=== PATIENT | male | born 1960 | race Two or more races ===

== ENCOUNTER → 2020-08-11 08:34 | Outpatient (BNVA) | payer OTHER, SELFPAY | PROVIDERS: Visit Provider Internal Medicine | DX: Z76.89 Persons encountering health services in other specified circumstances (principal) ==

== ENCOUNTER → 2020-09-08 07:22 | Outpatient (BNVA) | payer OTHER, SELFPAY | PROVIDERS: Visit Provider Internal Medicine | DX: Z76.89 Persons encountering health services in other specified circumstances (principal) ==

== ENCOUNTER 2020-09-30 12:12 | Outpatient (REF) | payer OTHER, SELFPAY ==
[2020-09-30 14:26] LABS: Cholesterol 180 mg/dL; HDL Cholesterol 51 mg/dL; LDL Cholesterol Calculated 107 mg/dl; Triglycerides 111 mg/dL
[2020-10-01 08:03] LABS: LDL Cholesterol Direct 121 mg/dL (<100)
== END 2020-09-30 12:13 | disposition home or self-care (01) ==
LOC: HO.HMGCLDS 12:12
PROVIDERS: PCP Nurse Practitioner Family; Visit Provider Internal Medicine
DX: E78.5 Hyperlipidemia, unspecified (principal)
CPT/HCPCS: 36415; 80061; 83721

== ENCOUNTER → 2020-10-29 07:52 | Outpatient (BNVA) | payer OTHER, SELFPAY | PROVIDERS: PCP Nurse Practitioner Family; Visit Provider Internal Medicine ==

== ENCOUNTER → 2020-12-26 09:58 | Outpatient (BNVA) | payer OTHER, SELFPAY | PROVIDERS: PCP Nurse Practitioner Family; Visit Provider Internal Medicine ==

== ENCOUNTER 2021-08-26 08:40 | Outpatient (REF) | payer OTHER, SELFPAY ==
[2021-08-26 11:42] LABS: Appearance Urine CLOUDY; Color Urine YELLOW; Glucose Urine UA NEG (NEG); Leukocyte Esterase Urine NEG (NEG); Nitrite Urine NEG (NEG); Specific Gravity - Urine 1.025 (1.005-1.025); UACC Culture Trigger NO; Urine Blood 1+ (NEG); Urine Ketones NEG (NEG); Urine Protein NEG (NEG-TRACE)
[2021-08-26 11:54] LABS: Alanine Aminotransferase 35 U/L (0-40); Albumin Level 4.5 g/dL (3.5-5.0); Alkaline Phosphatase 65 U/L (39-117); Anion Gap 16 (12-20); Aspartate Amino Transferase 22 U/L (5-37); Bilirubin Total 0.5 mg/dL (0.0-1.0); Blood Urea Nitrogen 21 mg/dL (9-16); Calcium 9.9 mg/dL (8.4-10.2); Carbon Dioxide 27 mmol/L (22-29); Chloride 103 mmol/L (96-108); Cholesterol 105 mg/dL; Estimated Glomerular Filt Rate 58; Glucose Fasting 104 mg/dL (60-99); HDL Cholesterol 49 mg/dL; LDL Cholesterol Calculated 33 mg/dl; Potassium 4.3 mmol/L (3.3-5.1); Sodium 142 mmol/L (135-145); Total Protein 7.7 g/dL (6.5-8.0); Triglycerides 118 mg/dL
[2021-08-26 12:12] LABS: WBC Urine 0-2 /HPF (0-4)
[2021-08-26 12:14] LABS: RBC Urine 0-2 /HPF (0)
[2021-08-26 12:15] LABS: Amorphous Sediment Urine 2+ /LPF; Mucus Urine 1+ /LPF
[2021-08-26 12:18] LABS: TSH reflex Free T4 2.03 uIU/mL (0.32-4.0)
[2021-08-26 12:35] LABS: Prostate Specific Antigen Scr 0.22 ng/mL (<0.05-4.0)
[2021-08-28 04:56] LABS: LDL Cholesterol Direct 35 mg/dL (<100)
== END 2021-08-26 08:41 | disposition home or self-care (01) ==
LOC: HO.HMGCLDS 08:40
PROVIDERS: Internal Medicine; PCP Nurse Practitioner Family; Visit Provider Nurse Practitioner Family
DX: Z12.5 Encounter for screening for malignant neoplasm of prostate (principal); I10 Essential (primary) hypertension; E78.5 Hyperlipidemia, unspecified
CPT/HCPCS: 36415; 80053; 80061; 81001; 83721; 84153; 84443

== ENCOUNTER 2022-02-15 10:49 | Outpatient (REF) | payer OTHER, SELFPAY ==
[2022-02-15 13:44] LABS: Urine Cytology See Pathology rpt
[2022-02-15 13:55] LABS: Appearance Urine CLOUDY; Color Urine STRAW; Glucose Urine UA NEG (NEG); Leukocyte Esterase Urine NEG (NEG); Nitrite Urine NEG (NEG); Specific Gravity - Urine 1.025 (1.005-1.025); Urine Blood TRACE (NEG); Urine Ketones NEG (NEG); Urine Protein NEG (NEG-TRACE)
[2022-02-15 14:02] LABS: Alanine Aminotransferase 39 U/L (0-40); Albumin Level 4.3 g/dL (3.5-5.0); Alkaline Phosphatase 63 U/L (39-117); Anion Gap 13 (12-20); Aspartate Amino Transferase 23 U/L (5-37); Bilirubin Total 0.6 mg/dL (0.0-1.0); Blood Urea Nitrogen 23 mg/dL (9-16); Calcium 9.5 mg/dL (8.4-10.2); Carbon Dioxide 25 mmol/L (22-29); Chloride 104 mmol/L (96-108); Cholesterol 142 mg/dL; Estimated Glomerular Filt Rate > 60; Glucose Fasting 113 mg/dL (60-99); HDL Cholesterol 43 mg/dL; LDL Cholesterol Calculated 84 mg/dl; Potassium 4.5 mmol/L (3.3-5.1); Sodium 137 mmol/L (135-145); Total Protein 7.5 g/dL (6.5-8.0); Triglycerides 79 mg/dL
[2022-02-15 14:22] LABS: Amorphous Sediment Urine 4+ /LPF; RBC Urine 0-2 /HPF (0); WBC Urine 0 /HPF (0-4)
== END 2022-02-15 10:50 | disposition home or self-care (01) ==
LOC: HO.HMGCLDS 10:49
PROVIDERS: Absent Provider Internal Medicine; PCP Nurse Practitioner Family; Visit Provider Nurse Practitioner Family
DX: R31.29 Other microscopic hematuria (principal); I10 Essential (primary) hypertension
CPT/HCPCS: 36415; 80053; 80061; 81001; 87086; 88112

== ENCOUNTER 2022-09-08 09:53 | Outpatient (REF) | payer OTHER, SELFPAY | END 2022-09-08 09:54 | disposition home or self-care (01) | LOC: HO.SH 09:53 | PROVIDERS: Visit Provider Nurse Practitioner Family | DX: Z01.118 Encounter for examination of ears and hearing with other abnormal findings (principal); H90.3 Sensorineural hearing loss, bilateral; H93.13 Tinnitus, bilateral | CPT/HCPCS: 92557; 92567 ==

== ENCOUNTER 2022-09-28 09:19 | Outpatient (REF) | payer OTHER, SELFPAY ==
[2022-09-28 11:12] LABS: Alanine Aminotransferase 30 U/L (0-40); Albumin Level 4.4 g/dL (3.5-5.0); Alkaline Phosphatase 72 U/L (39-117); Anion Gap 11 (12-20); Aspartate Amino Transferase 21 U/L (5-37); Blood Urea Nitrogen 16 mg/dL (9-16); Calcium 9.7 mg/dL (8.4-10.2); Carbon Dioxide 29 mmol/L (22-29); Chloride 104 mmol/L (96-108); Cholesterol 96 mg/dL; Estimated Glomerular Filt Rate > 60; Glucose Random 107 mg/dL (60-115); HDL Cholesterol 44 mg/dL; LDL Cholesterol Calculated 38 mg/dl; Potassium 4.5 mmol/L (3.3-5.1); Sodium 139 mmol/L (135-145); Total Protein 7.3 g/dL (6.5-8.0); Triglycerides 72 mg/dL
[2022-09-29 22:52] LABS: LDL Cholesterol Direct 36 mg/dL (<100)
== END 2022-09-28 09:20 | disposition home or self-care (01) ==
LOC: HO.LAB 09:19
PROVIDERS: PCP Nurse Practitioner Family; Visit Provider Internal Medicine
DX: E78.5 Hyperlipidemia, unspecified (principal)
CPT/HCPCS: 36415; 80053; 80061; 83721

== ENCOUNTER → 2022-09-30 13:55 | Outpatient (BNVA) | payer OTHER, SELFPAY | PROVIDERS: PCP Nurse Practitioner Family; Visit Provider Internal Medicine | DX: E78.5 Hyperlipidemia, unspecified (principal); Z79.899 Other long term (current) drug therapy | CPT/HCPCS: 99212 ==

== ENCOUNTER 2023-01-17 08:47 | Outpatient (REF) | payer OTHER, SELFPAY ==
[2023-01-17 11:17] LABS: MANUAL DIFF FLAG NO
[2023-01-17 11:31] LABS: Appearance Urine Clear; Color Urine Dark Yellow; Glucose Urine UA Negative (Negative); Leukocyte Esterase Urine Negative (Negative); Nitrite Urine Negative (Negative); Specific Gravity - Urine >= 1.030 (1.005-1.025); Urine Blood Negative (Negative); Urine Ketones Trace mg/dL (Negative); Urine Protein Trace mg/dL (Neg-Trace)
[2023-01-17 11:35] LABS: Bacteria Urine None Seen (None Seen); Hyaline Casts Urine 0-2 /LPF (0-2); RBC Urine 0-2 /HPF (0-2); Squamous Epithelial Cell Urine 0-2 /HPF (0-2); WBC Urine 0-5 /HPF (0-5)
[2023-01-17 11:43] LABS: Basophils Percent Auto 0.4 % (0-2); Eosinophils Absolute Auto 0.1 X10*3/uL (0.0-0.4); Eosinophils Percent Auto 0.8 % (0-4); Hematocrit 51.8 % (42.0-52.0); Imm Gran Abs Auto 0.02 X10*3/uL (0.00-0.03); Imm Gran Pct Auto 0.3 % (0.0-0.4); Lymphocytes Absolute Auto 1.6 X10*3/uL (1.2-4.9); Lymphocytes Percent Auto 21.2 % (20-40); Mean Corpuscular HGB Conc 32.8 g/dl (31.0-36.0); Mean Corpuscular Hemoglobin 31.4 pg (27.0-33.0); Mean Corpuscular Volume 95.7 fL (80.0-98.0); Mean Platelet Volume 9.6 fL (9.4-12.4); Monocytes Absolute Auto 0.6 X10*3/uL (0.1-1.2); Monocytes Percent Auto 8.7 % (2-11); Neutrophils Percent Auto 68.6 % (45-73); Platelet Count 185 X10*3/uL (160-400); Red Blood Count 5.41 X10*6/uL (4.60-5.80); Red Cell Distribution Width 13.5 % (11.0-16.0); White Blood Count 7.3 X10*3/uL (4.8-10.8)
[2023-01-17 12:09] LABS: Alanine Aminotransferase 36 U/L (0-40); Albumin Level 4.4 g/dL (3.5-5.0); Alkaline Phosphatase 49 U/L (39-117); Anion Gap 11 (12-20); Aspartate Amino Transferase 22 U/L (5-37); Bilirubin Total 0.8 mg/dL (0.0-1.0); Blood Urea Nitrogen 19 mg/dL (9-16); Calcium 9.7 mg/dL (8.4-10.2); Carbon Dioxide 30 mmol/L (22-29); Chloride 104 mmol/L (96-108); Cholesterol 112 mg/dL; Estimated Glomerular Filt Rate 57; Glucose Fasting 97 mg/dL (60-99); HDL Cholesterol 47 mg/dL; LDL Cholesterol Calculated 48 mg/dl; Potassium 4.1 mmol/L (3.3-5.1); Sodium 141 mmol/L (135-145); Total Protein 7.1 g/dL (6.5-8.0); Triglycerides 89 mg/dL
[2023-01-17 12:14] LABS: Prostate Specific Antigen Scr 0.29 ng/mL (<0.05-4.0); TSH reflex Free T4 2.15 uIU/mL (0.32-4.0)
== END 2023-01-17 08:48 | disposition home or self-care (01) ==
LOC: HO.HMGCLDS 08:47
PROVIDERS: PCP Nurse Practitioner Family; Visit Provider Nurse Practitioner Family
DX: Z00.00 Encounter for general adult medical examination without abnormal findings (principal); Z12.5 Encounter for screening for malignant neoplasm of prostate; R31.29 Other microscopic hematuria
CPT/HCPCS: 36415; 80053; 80061; 81001; 84153; 84443; 85025

== ENCOUNTER 2023-03-17 09:08 | Outpatient (REF) | payer OTHER, SELFPAY ==
[2023-03-17 12:02] LABS: Cholesterol 109 mg/dL; HDL Cholesterol 62 mg/dL; LDL Cholesterol Calculated 36 mg/dl; Triglycerides 58 mg/dL
[2023-03-19 06:09] LABS: LDL Cholesterol Direct 36 mg/dL (<100)
== END 2023-03-17 09:09 | disposition home or self-care (01) ==
LOC: HO.HMGCLDS 09:08
PROVIDERS: PCP Nurse Practitioner Family; Visit Provider Internal Medicine
DX: E78.5 Hyperlipidemia, unspecified (principal)
CPT/HCPCS: 36415; 80061; 83721

== ENCOUNTER → 2023-04-04 07:51 | Outpatient (BNVA) | payer OTHER, SELFPAY | PROVIDERS: PCP Nurse Practitioner Family; Visit Provider Internal Medicine ==

== ENCOUNTER 2023-05-17 10:43 | Outpatient (AMB) | payer OTHER, SELFPAY ==
[2023-05-17 11:26] VITALS: BP 102/68; PULSE 54; O2SAT 96; BMI 28.0
--- NOTE | 2023-05-17 11:26 | A.OFFPC_ITS ---
Vital Signs 05/17/23 11:26 Height 5 ft 10 in Weight 195 lb BMI 28.0 BP 102/68 Blood Pressure Location Rt brachial Position Sitting Pulse 54 Pulse Source Pulse Oximeter Pulse Oximetry (%) 96 Oxygen Delivery Method Room Air Intake Visit Reasons: Physical exam Allergies No Known Allergies [No Known Allergies*] Allergy (Verified 05/17/23 12:25) Medication List - Last Reconciled 05/17/23 by Dimitris Carter, FINANCIAL COMPLIANCE MANAGER- aspirin 1 tab PO DAILY atorvastatin 80 mg PO DAILY carvedilol 3.125 mg PO BID dapagliflozin propanediol (Farxiga) 10 mg PO DAILY docusate sodium 100 mg PO BID ergocalciferol (vitamin D2) 1,250 mcg PO QWEEK evolocumab (Repatha SureClick) 140 mg subcut Q2W 30 days ketotifen fumarate 0.025%(0.035%) (Eye Itch Relief) 1 drp ophthalmic (eye) BID PRN montelukast 10 mg PO DAILY omeprazole 20 mg PO DAILY sacubitril-valsartan 49-51 mg (Entresto) 1 tab PO BID torsemide 10 mg PO DAILY triamcinolone acetonide 2 sprays intranasal DAILY Tobacco use date assessed: 05/17/23 Dental Screening Dental Screen Date: 05/17/23 Did you have a dental visit in the last 12 months?: No Did you have a dental problem in the last 6 months where you did not have access to dental care?: No Was dental information given to patient?: No HPI Physical exam HPI Details Pt is here for a PE. Will order labs. PSA is up to date. Due for colon screen, will refer to GI. Pt c/o increased GERD. He would like his omeprazole increased, will increased from 20mg to 40mg. Pt follows up with urology and cardiology. Pt asked if i can take over prescribing his rapatha, was seeing basilio, who is now leaving the office setting. I will take over this script [facility] Medical History Aortic stenosis Atherosclerosis CAD (coronary artery disease) CKD (chronic kidney disease) GERD (gastroesophageal reflux disease) History of [place] (myocardial infarction) HLD (hyperlipidemia) HTN (hypertension) Ischemic cardiomyopathy Paroxysmal A-fib PUD (peptic ulcer disease) Surgical History History of cardiac catheterization Hx of cholecystectomy Hx of heart artery stent S/P CABG x 4 Family History (Reviewed 05/17/23 @ 11:43 by DAVID [facility]EN[facility] Father No problems noted. Mother Myocardial infarction CVD (cardiovascular disease) Social History (Reviewed 05/17/23 @ 11:43 by DAVID LeonardEN[facility]) Housing: Apartment Patient Tobacco Use Status: Former Tobacco user Quit Date: 1979 Cigarette Packs Per Day: 1 Years Smoked: 12 e-Cigarette/Vaping Use: Never Used Second Hand Smoke Exposure: No Current occupational status: unemployed Cognitive needs: No Hearing needs: No Vision needs: No Questionnaire Thrive Questionnaire Date Thrive assessed: 01/17/23 LUCRETIA-7 AMB Questionnaire LUCRETIA-7 Date LUCRETIA - 7 assessed: 01/17/23 Source: Developed by Drs. Antonio Marquez, Wilda Barrientos, Bo Grider and colleagues, with an educational poly from [employer]. Review of Systems Const Denies chills and Denies fever(s) Eyes Denies blurry vision ENT Denies vertigo, Denies dizziness and Denies sore throat Card Denies chest pain at rest, Denies chest pain with activity, Denies diaphoresis, Denies dyspnea and Denies dyspnea on exertion Resp Denies cough, Denies dyspnea, Denies dyspnea on exertion and Denies wheezing GI Denies abdominal pain, Denies melena, Denies hematochezia, Denies constipation, Denies diarrhea and Denies loose stools Denies hematuria Musc Denies numbness and Denies tingling Skin/Breast Denies lesions Neuro Denies vertigo, Denies dizziness, Denies numbness and Denies tingling Psych Denies anxiety, Denies depression, Denies homicidal ideation, Denies suicidal ideation and Denies other (substance abuse) Aller/Immun Denies wheezing Physical exam (Primary Care) Vital Signs: Last Vital Signs Pulse 54 05/17/23 11:26 BP 102/68 05/17/23 11:26 Pulse Ox 96 05/17/23 11:26 Oxygen Delivery Method Room Air 05/17/23 11:26 BMI result Body Mass Index 28.0 Tobacco/Smoking Status: Tobacco use Status Tobacco use date assessed 05/17/23 05/17/23 11:32 Patient Tobacco Use Status Former Tobacco user 05/17/23 11:27 e-Cigarette/Vaping Use Never Used 05/17/23 11:27 Thrive Assessment: Date of Thrive Assessment Date Thrive assessed 01/17/23 05/17/23 11:27 Const General: cooperative Nutritional Appearance: well nourished Orientation/consciousness: patient oriented x3 HENMT Head: Yes normal to inspection, Yes normocephalic and Yes atraumatic Ears: TM's normal bilaterally Eyes General: appearance normal, both eyes and all related structures Alignment and Position: alignment normal and position normal Neck Neck: Yes normal visual inspection and Yes no lymphadenopathy Thyroid: Thyroid normal Resp Effort & Inspection: normal respiratory effort Auscultation: clear to auscultation bilaterally Cardio Rate: regular rate Rhythm: regular rhythm Heart sounds: S1 normal heart sound present, S2 normal heart sound present and Murmur heart sound present (faint) systolic GI Palpation (GI): Soft to palpation and nontender Auscultation: normal bowel sounds Male General Exam: Yes normal external exam Penis: normal penis Scrotum: scrotum normal, testes descended bilaterally and no inguinal hernias Testes: no testicular mass Skin Other: left upper chest with significant fading ecchymosis, incision with dermabond, slightly TTP, no signs of infection Rashes: no rashes Neuro General: patient oriented x3, moves all extremities, no focal motor deficits and deep tendon reflexes 2+ bilaterally Romberg Test: Negative Psych Appearance: grossly normal Mental Status: mental status grossly normal Speech and movement: Normal speech and movement present Affect: normal affect Attitude: cooperative Thought process: Normal thought process present Thought content: Normal thought content present Insight: Good insight present (Psych) Judgement: Good judgement present (Psych) Assessment and Plan Assessment & Plan (1) Physical exam: Code(s): Z00.00 - Encounter for general adult medical examination without abnormal findings (2) Screening for colon cancer: Code(s): Z12.11 - Encounter for screening for malignant neoplasm of colon (3) Screening PSA (prostate specific antigen): Code(s): Z12.5 - Encounter for screening for malignant neoplasm of prostate Plan The patient agreed to the use of a lpn medical assistant for this encounter. Scribed for SO VelardeP-BC by Clotilde Lopes, lpn medical assistant, on 05/17/2023 at 11:35 EST. Orders: Orders Comprehensive [place]. Panel Fast Today Z00.00 - Encounter for general adult med ical examination without abnormal findings Lipid Panel Today Z00.00 - Encounter for general adult medical examination without abnormal findings TSH reflex Free T4 Today Z00.00 - Encounter for general adult medical examination without abnormal findings Complete Blood Count Auto Diff Today Z00.00 - Encounter for general adult medical examination without abnormal findings UA CC w/rflx Micro + Cult Today Z00.00 - Encounter for general adult medical examination without abnormal findings Referrals Gastroenterology Referral Z12.11 - Encounter for screening for malignant neoplasm of colon Medications: Changed From omeprazole 20 mg PO DAILY 90 caps 1RF To omeprazole 40 mg PO DAILY 90 caps 1RF 90 days Coding Level of Care Code Est Pt Prev Care 40-64y(92989) Diagnoses Physical exam Z00.00 Screening for colon cancer Z12.11 Screening PSA (prostate specific antigen) Z12.5
== END 2023-05-17 12:20 | disposition home or self-care (01) ==
PROVIDERS: Visit Provider Nurse Practitioner Family
DX: Z00.00 Encounter for general adult medical examination without abnormal findings (principal); Z12.11 Encounter for screening for malignant neoplasm of colon; Z12.5 Encounter for screening for malignant neoplasm of prostate
CPT/HCPCS: 99396

== ENCOUNTER 2023-05-17 11:49 | Outpatient (REF) | payer OTHER, SELFPAY ==
[2023-05-17 13:08] LABS: MANUAL DIFF FLAG NO
[2023-05-17 13:37] LABS: Basophils Percent Auto 0.3 % (0-2); Eosinophils Absolute Auto 0.1 X10*3/uL (0.0-0.4); Eosinophils Percent Auto 0.8 % (0-4); Hematocrit 49.5 % (42.0-52.0); Hemoglobin 16.7 g/dl (14.0-18.0); Imm Gran Abs Auto 0.03 X10*3/uL (0.00-0.03); Imm Gran Pct Auto 0.3 % (0.0-0.4); Lymphocytes Absolute Auto 1.3 X10*3/uL (1.2-4.9); Lymphocytes Percent Auto 15.2 % (20-40); Mean Corpuscular HGB Conc 33.7 g/dl (31.0-36.0); Mean Corpuscular Hemoglobin 32.1 pg (27.0-33.0); Mean Platelet Volume 9.4 fL (9.4-12.4); Monocytes Absolute Auto 0.6 X10*3/uL (0.1-1.2); Monocytes Percent Auto 7.2 % (2-11); Neutrophils Absolute Auto 6.6 x10*3/uL (2.0-8.3); Neutrophils Percent Auto 76.2 % (45-73); Platelet Count 168 X10*3/uL (160-400); Red Blood Count 5.21 X10*6/uL (4.60-5.80); Red Cell Distribution Width 13.7 % (11.0-16.0); White Blood Count 8.7 X10*3/uL (4.8-10.8)
[2023-05-17 14:22] LABS: Alanine Aminotransferase 49 U/L (0-40); Albumin Level 4.5 g/dL (3.5-5.0); Alkaline Phosphatase 82 U/L (39-117); Anion Gap 14 (12-20); Aspartate Amino Transferase 41 U/L (5-37); Bilirubin Total 0.9 mg/dL (0.0-1.0); Blood Urea Nitrogen 23 mg/dL (9-16); Calcium 10.5 mg/dL (8.4-10.2); Carbon Dioxide 29 mmol/L (22-29); Chloride 103 mmol/L (96-108); Cholesterol 99 mg/dL (<200); Estimated Glomerular Filt Rate > 60; Glucose Fasting 87 mg/dL (60-99); HDL Cholesterol 53 mg/dL (>40); LDL Cholesterol Calculated 33 mg/dL (<100); Potassium 4.1 mmol/L (3.3-5.1); Sodium 142 mmol/L (135-145); Total Protein 8.3 g/dL (6.5-8.0); Triglycerides 69 mg/dL (<150)
[2023-05-17 14:27] LABS: TSH reflex Free T4 1.33 uIU/mL (0.32-4.0)
[2023-05-17 16:45] LABS: Appearance Urine Clear; Color Urine Yellow; Glucose Urine UA Negative (Negative); Leukocyte Esterase Urine Negative (Negative); Nitrite Urine Negative (Negative); PH 6.5 (5.0-9.0); Urine Blood Negative (Negative); Urine Ketones Negative (Negative); Urine Protein Negative (Neg-Trace)
== END 2023-05-17 11:50 | disposition home or self-care (01) ==
LOC: HO.HMGCLDS 11:49
PROVIDERS: PCP Nurse Practitioner Family; Visit Provider Nurse Practitioner Family
DX: Z00.00 Encounter for general adult medical examination without abnormal findings (principal)
CPT/HCPCS: 36415; 80053; 80061; 81003; 84443; 85025

== ENCOUNTER 2023-06-14 08:26 | Outpatient (REF) | payer OTHER, SELFPAY ==
--- NOTE | ~2023-06-14 | US_ITS ---
EXAMINATION: US ABDOMEN COMPLETE CLINICAL INFORMATION: Abnormal levels of other serum enzymes. Elevated liver enzymes. COMPARISON: None available. TECHNIQUE: Real-time imaging of the abdominal viscera. Limited visualization due to bowel gas. FINDINGS: PANCREAS: Limited visualization of pancreatic tail and head. Imaged portion of pancreatic body is unremarkable. ABDOMINAL AORTA: Mild atherosclerosis. INFERIOR VENA CAVA: Visualized portions are normal. LIVER: Mild diffusely heterogeneous hepatic echotexture may represent hepatocellular disease. Limited visualization. GALLBLADDER: Surgically absent. COMMON BILE DUCT: Normal in caliber measuring 0.5 cm in diameter. RIGHT KIDNEY: No hydronephrosis. No renal calculi. Renal cortical thickness is normal. Limited visualization. The kidney measures 10.4 cm in maximum dimension. LEFT KIDNEY: No hydronephrosis. No renal calculi. Renal cortical thickness is normal. Limited visualization. The kidney measures 11.9 cm in maximum dimension. SPLEEN: The spleen measures 8.0 cm in maximum dimension. FREE FLUID: None. US/US abdomen complete IMPRESSION: Mild atherosclerosis. Mild diffusely heterogeneous hepatic echotexture may represent hepatocellular disease. Gallbladder surgically absent.
[2023-06-15 08:37] LABS: HBS Num1 1.67 mIU/mL (0-7.99); HBc Num1 0.14 S/CO (0.00-0.79); HBsAGNum1 0.29 S/CO (0.00-0.99); Hepatitis A Antibody IgM 0.15 Index (0-0.79); Hepatitis B Core Antibody Nonreactive (Nonreactive); Hepatitis B Surface Antigen Negative (Negative); ~HepC Num1 0.05 S/CO (0.00-0.79); ~Hepatitis A Antibody IgM Nonreactive (Nonreactive); ~Hepatitis B Surface Antibody NONREACTIVE (Nonreactive); ~Hepatitis C Antibody Nonreactive (Nonreactive)
== END 2023-06-14 08:27 | disposition home or self-care (01) ==
LOC: HO.HMGCX 08:26
PROVIDERS: PCP Nurse Practitioner Family; Visit Provider Nurse Practitioner Family
DX: R74.8 Abnormal levels of other serum enzymes (principal)
CPT/HCPCS: 36415; 76700; 86704; 86706; 86709; 86803; 87340

== ENCOUNTER 2023-07-13 08:08 | Outpatient (AMB) | payer OTHER, SELFPAY ==
--- NOTE | 2023-07-13 08:11 | A.OFFVIS_ITS ---
Intake Vital Signs 07/13/23 08:25 Height 5 ft 10 in Weight 187 lb BMI 26.8 BP 120/68 Blood Pressure Location Lt brachial Position Sitting Pulse 79 Intake Visit Reasons: Colonoscopy screening Allergies No Known Allergies [No Known Allergies*] Allergy (Verified 07/13/23 08:24) Medication List - Last Reconciled 07/13/23 by Tamara Klein PA-C aspirin 1 tab PO DAILY atorvastatin 80 mg PO DAILY carvedilol 3.125 mg PO BID dapagliflozin propanediol (Farxiga) 10 mg PO DAILY docusate sodium 100 mg PO BID ergocalciferol (vitamin D2) 1,250 mcg PO QWEEK evolocumab (Repatha SureClick) 140 mg subcut Q2W 30 days ketotifen fumarate 0.025%(0.035%) (Eye Itch Relief) 1 drp ophthalmic (eye) BID PRN montelukast 10 mg PO DAILY omeprazole 40 mg PO DAILY 90 days sacubitril-valsartan 49-51 mg (Entresto) 1 tab PO BID torsemide 10 mg PO DAILY triamcinolone acetonide 2 sprays intranasal DAILY HPI HPI Comments History of Present Illness Details A 62 y/o male CAD-referred for colonoscopy-last colonoscopy 3 years ago at -3 adenomas- Persistent acid reflux-unable to identify anything specific-no weight gain, ppi increased-omeprazole 40 mg-appetite is good EGD/ 2019- Reviewed previous EGD colonoscopy and pathology from 2019 Bowels are normal- with bowel regimen and HFD- BILLY- cpap Qhs CAD- CABG-follows at [facility]- Dr. Cox- defibrillator place 04/2023- no anticoags No nausea, vomiting, hematemesis, hematochezia fever chills [facility] Medical History (Updated 07/13/23 @ 09:11 by Tamara Klein PA-C) Aortic stenosis CKD (chronic kidney disease) Paroxysmal A-fib Ischemic cardiomyopathy GERD (gastroesophageal reflux disease) Atherosclerosis History of [place] (myocardial infarction) PUD (peptic ulcer disease) HTN (hypertension) HLD (hyperlipidemia) CAD (coronary artery disease) Surgical History S/P CABG x 4 History of cardiac catheterization Hx of heart artery stent Hx of cholecystectomy Family History Father No problems noted. Mother Myocardial infarction CVD (cardiovascular disease) Social History Housing: Apartment Patient Tobacco Use Status: Former Tobacco user Quit Date: 1979 Cigarette Packs Per Day: 1 Years Smoked: 12 e-Cigarette/Vaping Use: Never Used Second Hand Smoke Exposure: No Current occupational status: unemployed Cognitive needs: No Hearing needs: No Vision needs: No Review of Systems Const All systems reviewed & are unremarkable except as noted in HPI and below ENT Denies Normal hearing present Card Denies chest pain and Denies dyspnea Resp Denies dyspnea GI Denies abdominal pain, Denies hematochezia, Denies change in bowel habits, Reports heartburn, Denies nausea and Denies vomiting Neuro Denies Normal hearing present Physical Exam Vital Signs: Last Vital Signs Pulse 79 07/13/23 08:25 BP 120/68 07/13/23 08:25 BMI result Body Mass Index 26.8 Const General: cooperative, comfortable and no acute distress Orientation/consciousness: patient oriented x3 Limitations: other limitations ([place]) Eyes Sclerae: sclerae normal Cardio Rate: regular rate Rhythm: regular rhythm Heart sounds: Murmur heart sound present systolic GI Palpation (GI): Soft to palpation and nontender Auscultation: normal bowel sounds Skin General skin exam: no rashes or lesions noted Neuro General: patient oriented x3 Cranial nerves: No Normal hearing present Extrem General: Yes full ROM Psych Appearance: grossly normal Mental Status: mental status grossly normal Speech and movement: Normal speech and movement present Affect: normal affect Attitude: cooperative Thought process: Normal thought process present Thought content: Normal thought content present Insight: Good insight present (Psych) Judgement: Good judgement present (Psych) Results Reviewed Results Reviewed: Reviewed previous EGD colonoscopy [address] Dr. Vasquez at [facility] Pathology 1. Esophagus, biopsy Focal intestinal metaplasia consistent with Pete's mucosa negative for dysplasia Esophageal squamous and gastric cardia mucosa with no pathologic changes 2. Transverse colon, polypectomy x3 Tubular adenomas, fragmented Assessment & Plan Assessment & Plan (1) Encounter for colonoscopy due to history of adenomatous colonic polyps: Comment: 2019-11 adenomas [facility]-Dr. 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: Comment: No dysplasia Code(s): K22.70 - Pete's esophagus without dysplasia Plan: EGD Continue omeprazole (4) GERD (gastroesophageal reflux disease): Comment: Recent increase PPI Unable to identify culprits Code(s): K21.9 - Gastro-esophageal reflux disease without esophagitis Plan: Continue PPI Reviewed reflux precautions (5) Chronic constipation: Code(s): K59.09 - Other constipation Plan: Reviewed high-fiber diet Consistent bowel regimen Plan EGD/ colonoscopy- anesthesia consult- CVD- defib/BILLY MG prep miralax 4 days before also , given history of constipation Continue bowel regimen for constipation maintain high-fiber diet Review reflux precautions Avoid culprits Continue PPI Orders: Orders EGD/[place] [facility] - GI Use Only Today K22.70 - Pete's esophagus without dysplasia, Z12.11 - Encounter for screening for malignant neoplasm of colon, Z86.010 - Personal history of colonic polyps, Z95.810 - Presence of automatic (implantable) cardiac defibrillator Medications: New bisacodyl (Dulcolax (bisacodyl)) Day before procedure, prep day Take 4 tablets by mouth upon awakening followed by large glass of water 20 mg (4 x 5 mg) PO ONCE 1 day 4 tabs 0RF colonoscopy prep Z12.11 - Encounter for screening for malignant neoplasm of colon polyethylene glycol 3350 (Miralax) Take as directed by mouth the day before your procedure. 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
[2023-07-13 08:25] VITALS: BP 120/68; PULSE 79; BMI 26.8
== END 2023-07-13 10:04 | disposition home or self-care (01) ==
PROVIDERS: PCP Nurse Practitioner Family; Visit Provider Physician Assistant
DX: Z12.11 Encounter for screening for malignant neoplasm of colon (principal); Z86.010 Personal history of colon polyps; Z95.810 Presence of automatic (implantable) cardiac defibrillator; K22.70 Barrett's esophagus without dysplasia; K21.9 Gastro-esophageal reflux disease without esophagitis; K59.09 Other constipation; Z01.818 Encounter for other preprocedural examination
CPT/HCPCS: 99204

== ENCOUNTER → 2023-07-13 08:08 | Outpatient (BNVA) | payer OTHER, SELFPAY | PROVIDERS: PCP Nurse Practitioner Family; Visit Provider Physician Assistant ==

== ENCOUNTER 2023-09-08 08:24 | Outpatient (REF) | payer OTHER, SELFPAY | END 2023-09-08 08:25 | disposition home or self-care (01) | LOC: HO.SH 08:24 | PROVIDERS: Visit Provider Nurse Practitioner Family | DX: Z01.118 Encounter for examination of ears and hearing with other abnormal findings (principal); H90.3 Sensorineural hearing loss, bilateral; H93.13 Tinnitus, bilateral | CPT/HCPCS: 92557 ==

== ENCOUNTER 2023-12-06 08:36 | Day surgery (SDC) | payer OTHER, SELFPAY ==
--- NOTE | 2023-12-05 11:43 | P.CONAN_ITS ---
Documented by User: Brandy Son NP 12/05/23 12:06 HPI - Anesthesia Eval Consult details Narrative: 63yo M for Upper Endoscopy and Colonoscopy Follows [facility] for CAD s/p CABG x 4 2018, CMP, EF 30-35%, ICD implanted 04/2023. Stable, improved last office visit 05/2023. (Routine f/u visit 12/12/23). Rides bike regularly without symptoms. 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 (Acute) Cardiac defibrillator in place (Acute) Encounter for colonoscopy due to history of adenomatous colonic polyps (Acute) Elevated liver enzymes (Acute) Screening for colon cancer (Acute) Low left ventricular ejection fraction (Acute) Physical exam (Acute) Allergies (Acute) Hearing loss (Acute) Microscopic hematuria (Acute) Screening PSA (prostate specific antigen) (Acute) Ischemic cardiomyopathy (Acute) Cough (Acute) Nausea & vomiting (Acute) CPAP (continuous positive airway pressure) dependence (Acute) HTN (hypertension) (Acute) HLD (hyperlipidemia) (Acute) CAD (coronary artery disease) (Acute) Past Medical History Medical History Aortic stenosis CKD (chronic kidney disease) Paroxysmal A-fib Ischemic cardiomyopathy GERD (gastroesophageal reflux disease) Atherosclerosis History of [place] (myocardial infarction) PUD (peptic ulcer disease) HTN (hypertension) HLD (hyperlipidemia) CAD (coronary artery disease) Family History Family History Father No problems noted. Mother Myocardial infarction CVD (cardiovascular disease) Surgical History Surgical History Hx of colonoscopy Hx of esophagogastroduodenoscopy History of cardiac defibrillator placement S/P CABG x 4 History of cardiac catheterization Hx of heart artery stent Hx of cholecystectomy Social History Social History Housing: Apartment Patient Tobacco Use Status: Former Tobacco user Quit Date: 1979 Cigarette Packs Per Day: 1 Years Smoked: 12 e-Cigarette/Vaping Use: Never Used Second Hand Smoke Exposure: No Use of substances other than those prescribed or required for medical reasons: No Are you DNR?: No Advance Directives: No Advance Directives Information Provided: Yes Current occupational status: unemployed Cognitive needs: No Hearing needs: No Vision needs: No Meds Allergies Allergy/AdvReac Type Severity Reaction Status Date / Time No Known Allergies Allergy Verified 07/13/23 08:24 [No Known Allergies*] Home Medications Medication Instructions Recorded Confirmed Last Taken Type aspirin 81 mg chewable tablet 1 tab PO DAILY 08/11/20 12/06/23 Unknown History ergocalciferol (vitamin D2) 1,250 1,250 mcg PO QWEEK 08/11/20 12/06/23 Unknown History mcg (50,000 unit) capsule torsemide 10 mg tablet 10 mg PO DAILY 08/11/20 12/06/23 Unknown History triamcinolone acetonide 55 mcg 2 spray intranasal DAILY 08/11/20 12/06/23 Unknown History nasal spray aerosol carvedilol 3.125 mg tablet 3.125 mg PO BID 04/04/23 12/06/23 Unknown History dapagliflozin propanediol 10 mg 10 mg PO DAILY 04/04/23 12/06/23 Unknown History tablet (Farxiga) docusate sodium 100 mg capsule 100 mg PO BID 04/04/23 12/06/23 Unknown History ketotifen fumarate 0.025 % (0.035 1 drp ophthalmic (eye) BID PRN 04/04/23 12/06/23 Unknown History %) eye drops (Eye Itch Relief) allergies montelukast 10 mg tablet 10 mg PO DAILY 04/04/23 12/06/23 Unknown History sacubitril 49 mg-valsartan 51 mg 1 tab PO BID 04/04/23 12/06/23 Unknown History tablet (Entresto) atorvastatin 80 mg tablet 80 mg PO DAILY 12/06/23 12/06/23 Unknown History finasteride 5 mg tablet 5 mg PO DAILY 12/06/23 12/06/23 Unknown History Exam Narrative Narrative: ECHO prior to ICD per cardiac visit note: LV systolic function worsened Moderate MR mild to mod ICD interr 10/2023 0% AT/AF AP 8% HYPNOTHERAPIST 1% Documented by User: Tangela Espinoza MD 12/06/23 10:27 HPI - Anesthesia Eval Anesthesia Pre-Procedure Meds If Yes to any meds - educate patient: Pt education - increased risk of aspiration and Pt education - possibility of cancelled proc at provider's discretion PMFSH Past Medical History Medical History Aortic stenosis CKD (chronic kidney disease) Paroxysmal A-fib Ischemic cardiomyopathy GERD (gastroesophageal reflux disease) Atherosclerosis History of [place] (myocardial infarction) PUD (peptic ulcer disease) HTN (hypertension) HLD (hyperlipidemia) CAD (coronary artery disease) Family History Family History Father No problems noted. Mother Myocardial infarction CVD (cardiovascular disease) Family history of problems with anesthesia: No Surgical History Surgical History Hx of colonoscopy Hx of esophagogastroduodenoscopy History of cardiac defibrillator placement S/P CABG x 4 History of cardiac catheterization Hx of heart artery stent Hx of cholecystectomy History of Problems with Anesthesia: No Social History Social History Housing: Apartment Patient Tobacco Use Status: Former Tobacco user Quit Date: 1979 Cigarette Packs Per Day: 1 Years Smoked: 12 e-Cigarette/Vaping Use: Never Used Second Hand Smoke Exposure: No Use of substances other than those prescribed or required for medical reasons: No Are you DNR?: No Advance Directives: No Advance Directives Information Provided: Yes Current occupational status: unemployed Cognitive needs: No Hearing needs: No Vision needs: No Meds Allergies Allergy/AdvReac Type Severity Reaction Status Date / Time No Known Allergies Allergy Verified 07/13/23 08:24 [No Known Allergies*] Home Medications Medication Instructions Recorded Confirmed Last Taken Type aspirin 81 mg chewable tablet 1 tab PO DAILY 08/11/20 12/06/23 Unknown History ergocalciferol (vitamin D2) 1,250 1,250 mcg PO QWEEK 08/11/20 12/06/23 Unknown History mcg (50,000 unit) capsule torsemide 10 mg tablet 10 mg PO DAILY 08/11/20 12/06/23 Unknown History triamcinolone acetonide 55 mcg 2 spray intranasal DAILY 08/11/20 12/06/23 Unknown History nasal spray aerosol carvedilol 3.125 mg tablet 3.125 mg PO BID 04/04/23 12/06/23 Unknown History dapagliflozin propanediol 10 mg 10 mg PO DAILY 04/04/23 12/06/23 Unknown History tablet (Farxiga) docusate sodium 100 mg capsule 100 mg PO BID 04/04/23 12/06/23 Unknown History ketotifen fumarate 0.025 % (0.035 1 drp ophthalmic (eye) BID PRN 04/04/23 12/06/23 Unknown History %) eye drops (Eye Itch Relief) allergies montelukast 10 mg tablet 10 mg PO DAILY 04/04/23 12/06/23 Unknown History sacubitril 49 mg-valsartan 51 mg 1 tab PO BID 04/04/23 12/06/23 Unknown History tablet (Entresto) atorvastatin 80 mg tablet 80 mg PO DAILY 12/06/23 12/06/23 Unknown History finasteride 5 mg tablet 5 mg PO DAILY 12/06/23 12/06/23 Unknown History Exam Airway Mallampati Class: II TM Dist: <=3cm Neck ROM: Limited Heart: rrr Lungs: cta Assessment and Plan Assessment Anesthesia Assessment: Anesthesia Plan Discussed and Chart Reviewed Final Anesthetic Review Family History of Problems with Anesthesia: No History of Problems with Anesthesia: No NPO: Yes ASA Class: III Final Preanesthetic Review: No Changes in Pt Med Stat, Meds/Allgs Chart Reviewed, Consent Obtained/Reviewed and Anes Risks/Benef Reviewed Patient Risk: High Procedure Risk: Intermediate Anesthetic Plan Anesthetic Plan: MAC: Disposition: Standard PACU
[2023-12-06 09:51] VITALS: BMI 26.1
[2023-12-06 09:58] VITALS: BP 129/77; PULSE 88; RESP 16; TEMP 36.6; O2SAT 100
[2023-12-06] MEDS: Lactated Ringers 1,000 ML 50 ML IVCONT (10:31)
--- NOTE | 2023-12-06 10:45 | P.HPSUR_ITS ---
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,hx colonic p Relevant Family History (Specify if Yes): No Relevant Social History: None Present Medications: see Short Stay Collaborative assessment Medical History: Significant History ( Aortic stenosis CKD (chronic kidney di sease) Paroxysmal A-fib Ischemic cardiomyopathy GERD (gastroesophageal reflux disease) Atherosclerosis History of [place] (myocardial infarction) PUD (peptic ulcer disease) HTN (hypertension) HLD (hyperlipidemia) CAD (coronary artery disease)) History of Previous Operations: Relevant previous surgery/procedure and date(s) (Hx of colonoscopy Hx of esophagogastroduodenoscopy History of cardiac defibrillator placement S/P CABG x 4 History of cardiac catheterization Hx of heart artery stent Hx of cholecystectomy) Allergies: Allergies Allergy/AdvReac Type Severity Reaction Status Date / Time No Known Allergies Allergy Verified 07/13/23 08:24 [No Known Allergies*] Review of Systems Sugical H&P ROS: Negative: Constitution, Cardiovascular, Respiratory, Neurological, Psychiatric, Hem-Onc, Allergic/Immunologic, Gastrointestinal, Genitourinary, Musculoskeletal, Integumentary, Endocrine and Eyes/Ears/Nose/Throat Exam Surgical H&P Exam: Normal: HEENT, Normal: Heart, Normal: Lungs, Normal: Extremities, Normal: Abdomen, Normal: Skin and Normal: Neurological Plan Diagnosis/Plan: Unchanged I have reviewed the history and physical and performed a pertinent physical examination on my patient. No changes have occurred unless specified. Time Spent With Patient Time: Total time managing care of this patient today ____ minutes.
--- NOTE | 2023-12-06 10:47 | P.OP_ITS ---
Operative Note Operative Note Date of Service: 12/06/23 Narrative: Operative Information Procedure Description: EGD, Colonoscopy Indication: hx of barretts and colon polyps Anesthesia: MAC FLEXIBLE TRANSORAL UPPER GASTROINTESTINAL ENDOSCOPY AND COLONOSCOPY PROCEDURE NOTE UPPER ENDOSCOPY Consent: Indications for the procedure and potential complications of bleeding, perforation, reaction to medications and missed diagnosis were discussed with the patient and informed consent was obtained. Instrument: Olympus GIF H 190 J mid size upper endoscope Monitoring: Vital signs and clinical assessment, continuous EKG monitoring, Pulse oximetry, Carbon Dioxide monitoring and blood pressure monitoring were done throughout the procedure. Procedure: The patient was placed in the left lateral decubitis position and pre-procedure medications were administered and a bite block was placed. The endoscope was inserted into the mouth and advanced under direct vision to the third part of duodenum. A careful inspection was made as the upper endoscope was withdrawn including a retroflexed examination of the proximal stomach; Findings and interventions are described below. Findings: Larynx:normal Esophagus: GE junction at 37 cm, diaphragm hiatus at 41 cm, consistent with 4 cm hiatal hernia, schatzki ring noted as well as tongue of possible barretts and linear erosion with edema and bogginess of the GEJ with some scarring, bx taken from GEj, distal and proximal esophagus Stomach: erosive gastritis in distal stomach and antrum. Biopsies were obtained. Grade 2 flap valve on retroflexed examination of the cardia. Duodenum: Patchy erythema, possible peptic injury, bx taken Intervention: Biopsies as noted above, COLONOSCOPY Instrument: Olympus variable stiffness pediatric scope 190L Colonoscopy Monitoring: Vital signs and clinical assessment, continuous EKG monitoring, Pulse oximetry, Carbon Dioxide monitoring and blood pressure monitoring were done throughout the procedure. Colon withdrawal time was 11 minutes. Procedure: The patient was placed in the left lateral decubitis position and pre-procedure medications were administered. After a digital rectal examination of the ano-rectum, the video colonoscope was inserted into the rectum and advanced through the colon to the cecum/TI. The colonoscope was slowly withdrawn in a retrograde panoramic fashion and the colon mucosa was carefully examined including a retroflexed view of the rectum. Findings and interventions are described below. Procedure Difficulty:moderate Findings: Terminal Ileum-not intubated due to looping Cecum:normal Ascending Colon: normal Transverse Colon -normal Descending Colon:normal Sigmoid Colon: normal Rectum: Retroflexion with small to moderate sized internal hemorrhoids, grade I Anorectum - normal Colon preparation: Jackson Bowel Preparation Scale Right colon; 2 Transverse colon: 2 Left colon; 2 (0 = Unprepared colon segment with mucosa not seen due to solid stool that cannot be cleared. 1 = Portion of mucosa of the colon segment seen, but other areas of the colon segment not well seen due to staining, residual stool and/or opaque liquid. 2 = Minor amount of residual staining, small fragments of stool and/or opaque liquid, but mucosa of colon segment seen well. 3 = Entire mucosa of colon segment seen well with no residual staining, small fragments of stool or opaque liquid) Impression and Post Procedure Diagnosis: Endoscopy Findings: hiatal hernia esophagitis, erosive erosive gastritis schatzki ring duodenitis barretts appearing mucosa Colonoscopy Findings: internal hemorrhoids Plan: Await Pathology results Repeat Colonoscopy in 5 years due to prior hx of adenomatous polyps or earlier if clinically indicated High fiber diet leaflet avoid straining at stool, epsom salts and sitz bath, anusol supps or cream GERD precautions, check PPI compliance, if taking change formulation Above findings were reviewed with the patient and relevant handouts were provided if indicated.
[2023-12-06 11:38] VITALS: BP 109/68; PULSE 71; RESP 14; TEMP 36.3; O2SAT 98
[2023-12-06 11:53] VITALS: BP 129/82; PULSE 77; RESP 16; TEMP 36.3; O2SAT 100
== END 2023-12-06 12:20 | disposition home or self-care (01) ==
PROVIDERS: PCP Nurse Practitioner Family; Visit Provider Internal Medicine Gastroenterology
PROC: (CPT 43239; principal; 2023-12-06 11:00)
DX: K22.89 Other specified disease of esophagus (principal); K29.60 Other gastritis without bleeding; K29.80 Duodenitis without bleeding; K22.2 Esophageal obstruction; K44.9 Diaphragmatic hernia without obstruction or gangrene; Z87.19 Personal history of other diseases of the digestive system; K21.9 Gastro-esophageal reflux disease without esophagitis; Z12.11 Encounter for screening for malignant neoplasm of colon; K64.0 First degree hemorrhoids; Z86.010 Personal history of colon polyps; I12.9 Hypertensive chronic kidney disease with stage 1 through stage 4 chronic kidney disease, or unspecified chronic kidney disease; N18.9 Chronic kidney disease, unspecified; I48.0 Paroxysmal atrial fibrillation; E78.5 Hyperlipidemia, unspecified; Z90.49 Acquired absence of other specified parts of digestive tract; Z95.810 Presence of automatic (implantable) cardiac defibrillator; Z99.89 Dependence on other enabling machines and devices; Z95.1 Presence of aortocoronary bypass graft
CPT/HCPCS: 43239; 45378; 88305; 88313; 88342; J2371; J2704; J3010

== ENCOUNTER → 2023-12-06 08:36 | Outpatient (BNV) | payer OTHER, SELFPAY | PROVIDERS: PCP Nurse Practitioner Family; Visit Provider Internal Medicine Gastroenterology | DX: Z12.11 Encounter for screening for malignant neoplasm of colon (principal); Z86.010 Personal history of colon polyps; K64.0 First degree hemorrhoids; K22.2 Esophageal obstruction; K29.80 Duodenitis without bleeding; K29.70 Gastritis, unspecified, without bleeding; K22.4 Dyskinesia of esophagus | CPT/HCPCS: 43239; 45378 ==

== ENCOUNTER 2023-12-20 11:29 | Outpatient (AMB) | payer OTHER, SELFPAY ==
--- NOTE | 2023-12-20 11:31 | MHC.OFFVIS ---
Intake Vital Signs 12/20/23 11:33 Height 5 ft 10 in Weight 187 lb 6.287 oz BMI 26.9 BP 132/71 Blood Pressure Location Lt brachial Position Sitting Pulse 79 Intake Visit Reasons: s/p egd/colon Intake Note: Dimitris presents in the office as a follow up egd and colo CC: No concerns just here for results. Retail Representative Required: No Allergies No Known Allergies [No Known Allergies*] Allergy (Verified 12/20/23 11:31) Medication List - Last Reconciled 12/20/23 by Tamara Klein PA-C aspirin 1 tab PO DAILY atorvastatin 80 mg PO DAILY atorvastatin 80 mg PO DAILY carvedilol 3.125 mg PO BID dapagliflozin propanediol (Farxiga) 10 mg PO DAILY docusate sodium 100 mg PO BID ergocalciferol (vitamin D2) 1,250 mcg PO QWEEK evolocumab (Repatha SureClick) 140 mg subcut Q2W 30 days finasteride 5 mg PO DAILY ketotifen fumarate 0.025%(0.035%) (Eye Itch Relief) 1 drp ophthalmic (eye) BID PRN montelukast 10 mg PO DAILY omeprazole 40 mg PO DAILY 90 days sacubitril-valsartan 49-51 mg (Entresto) 1 tab PO BID torsemide 20 mg PO DAILY triamcinolone acetonide 2 sprays intranasal DAILY HPI HPI Comments History of Present Illness Details 63-year-old male personal history of colon polyps as well as Barretts esophagus follows up after EGD and colonoscopy. Reviewed procedure report, pathology and recommendation Omeprazole 40 mg daily-with breakthrough-he does worry about damage to his esophagus Constipation has been well managed following high-fiber diet as well as bowel regimen He has no nausea, vomiting hematemesis, hematochezia fever or chills PFSH Medical History (Updated 12/20/23 @ 11:47 by Tamara Klein PA-C) Aortic stenosis CKD (chronic kidney disease) Paroxysmal A-fib Ischemic cardiomyopathy GERD (gastroesophageal reflux disease) Atherosclerosis History of [place] (myocardial infarction) PUD (peptic ulcer disease) HTN (hypertension) HLD (hyperlipidemia) CAD (coronary artery disease) Surgical History Hx of colonoscopy Hx of esophagogastroduodenoscopy History of cardiac defibrillator placement S/P CABG x 4 History of cardiac catheterization Hx of heart artery stent Hx of cholecystectomy Family History Father No problems noted. Mother Myocardial infarction CVD (cardiovascular disease) Social History Housing: Apartment Patient Tobacco Use Status: Former Tobacco user Quit Date: 1979 Cigarette Packs Per Day: 1 Years Smoked: 12 e-Cigarette/Vaping Use: Never Used Second Hand Smoke Exposure: No Current occupational status: unemployed Cognitive needs: No Hearing needs: No Vision needs: No Review of Systems Const All systems reviewed & are unremarkable except as noted in HPI and below Card Denies chest pain and Denies dyspnea Resp Denies dyspnea GI Denies abdominal pain and Reports heartburn Physical Exam Vital Signs: Last Vital Signs Pulse 79 12/20/23 11:33 BP 132/71 12/20/23 11:33 BMI result Body Mass Index 26.9 Const General: cooperative, healthy appearing, comfortable and no acute distress Orientation/consciousness: patient oriented x3 Limitations: no limitations Resp Effort & Inspection: normal respiratory effort and able to speak in complete sentences Neuro General: patient oriented x3 Extrem General: Yes full ROM Psych Appearance: grossly normal and well kempt Mental Status: mental status grossly normal Speech and movement: Normal speech and movement present and Clear speech present Affect: normal affect Attitude: cooperative Thought process: Normal thought process present Thought content: Normal thought content present Insight: Good insight present (Psych) Judgement: Good judgement present (Psych) Results Reviewed Results Reviewed: Impression and Post Procedure Diagnosis: Endoscopy Findings: hiatal hernia esophagitis, erosive erosive gastritis schatzki ring duodenitis barretts appearing mucosa Colonoscopy Findings: internal hemorrhoids Plan: Await Pathology results Repeat Colonoscopy in 5 years due to prior hx of adenomatous polyps or earlier if clinically indicated High fiber diet leaflet avoid straining at stool, epsom salts and sitz bath, anusol supps or cream GERD precautions, check PPI compliance, if taking change formulation Age/Sex: 63/M Attending: Aminah Valero MD : 1960 Submitted by: Aminah Valero MD Copies to: Dimitris CarterP- MR #: [id number] Status: [facility] Collected: 12/06/23 Location: [facility] Received: 12/06/23 Diagnosis A. Duodenum, biopsy: Chronic inactive duodenitis. B. Stomach, biopsy: Oxyntic mucosa with mild chronic inactive inflammation; no Helicobacter organisms seen. C. GE junction, biopsy: - Pete esophagus with background moderate chronic active inflammation. - No dysplasia seen. - Squamous epithelium within normal limits. D. Esophagus, distal, biopsy: Squamous epithelium within normal limits; no inflammation seen. E. Esophagus, proximal, biopsy: - Cardiac-type mucosa with moderate chronic inactive inflammation; no intestinal metaplasia seen. - Squamous mucosa within normal limits. Comment: The findings in part E may represent an inlet patch. Parts D and E may also have been switched either prior to or after receipt in the laboratory. Clinical History Pre-Op Dx: Possible Pete's esophagus, hx of polyps Post-Op Dx: Erosive esophagitis, Schatzki's ring, erosive gastritis, hiatal hernia 4 cm, duodenitis, LAX LES, possible Pete's esophagus, internal hemorrhoids Microscopic Description A-E. Microscopic sections examined. Intestinal metaplasia is seen in C, gastric metaplasia in A and no metaplastic changes in B, supported by AB/PAS stains; no Helicobacter organisms are seen, supported by H. pylori immunostain (B). Material Received A. Duodenum B. Stomach C. GE junction D. Distal esophagus E. Proximal esophagus Patient: Dimitris Peña Age/Sex: 63/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 Plan: Repeat EGD 2-3 years (3) GERD (gastroesophageal reflux disease): Comment: Recent increase PPI Unable to identify culprits Code(s): K21.9 - Gastro-esophageal reflux disease without esophagitis Plan: Switch to pantoprazole 40 mg daily Will give 1 month supply sucralfate Reflux precautions Avoid culprits (4) Hiatal hernia: Code(s): K44.9 - Diaphragmatic hernia without obstruction or gangrene Plan: Reviewed plan of care remain upright after eating small portions (5) Erosive esophagitis: Code(s): K22.10 - Ulcer of esophagus without bleeding Plan: Compliant with PPI Carafate 1 month (6) Schatzki's ring: Code(s): K22.2 - Esophageal obstruction Plan: Noted, reviewed with patient Plan pantoprazole 40 mg QD 4 wks- sucralfate repeat EGD 2-3 years Colon -5years Medications: New sucralfate 1 g (10 mL) PO QIDACHS 4 weeks PRN 420 mL 0RF acid reflux pantoprazole 40 mg PO DAILY 90 days 90 tabs 3RF Patient Instructions: Very pleasant 63-year-old Gent personal history of colon polyps and Pete's esophagus pantoprazole 40 mg QD 4 wks- sucralfate Reviewed reflux precautions Avoid culprits Remain upright 2-3 hours after eating especially evening may repeat EGD 2-3 years Colon -5years for history of colon polyps Will follow back for progress Encouraged to call with any questions or concerns Coding Level of Care Code Est Pt Level 3 (63476) Diagnoses Chronic constipation K59.09 Pete's esophagus determined by endoscopy K22.70 GERD (gastroesophageal reflux disease) K21.9 Hiatal hernia K44.9 Erosive esophagitis K22.10 Schatzki's ring K22.2 Time Spent (min) 25
[2023-12-20 11:33] VITALS: BP 132/71; PULSE 79; BMI 26.9
== END 2023-12-20 11:55 | disposition home or self-care (01) ==
PROVIDERS: PCP Nurse Practitioner Family; Visit Provider Physician Assistant
DX: K59.09 Other constipation (principal); K22.70 Barrett's esophagus without dysplasia; K21.9 Gastro-esophageal reflux disease without esophagitis; K22.2 Esophageal obstruction
CPT/HCPCS: 99213

== ENCOUNTER → 2023-12-20 11:29 | Outpatient (BNVA) | payer OTHER, SELFPAY | PROVIDERS: PCP Nurse Practitioner Family; Visit Provider Physician Assistant | DX: K59.09 Other constipation (principal); K22.70 Barrett's esophagus without dysplasia; K21.9 Gastro-esophageal reflux disease without esophagitis; K44.9 Diaphragmatic hernia without obstruction or gangrene; K22.10 Ulcer of esophagus without bleeding; K22.2 Esophageal obstruction | CPT/HCPCS: 99212 ==

== ENCOUNTER 2024-02-16 07:56 | Outpatient (AMB) | payer OTHER, SELFPAY ==
--- NOTE | 2024-02-16 08:01 | A.OFFVIS_ITS ---
Vital Signs 02/16/24 08:02 Height 5 ft 10 in Weight 194 lb 7.163 oz BMI 27.9 BP 96/56 L Blood Pressure Location Lt brachial Position Sitting Pulse 80 Intake Visit Reasons: 8 week follow up Intake Note: Patient here to f/u Curtis Reports acid reflux flares after spicy food. Patient c/o: finished Sucralfate course. 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: No Allergies No Known Allergies [No Known Allergies*] Allergy (Verified 02/16/24 08:07) Medication List - Last Reconciled 02/16/24 by Tamara Klein PA-C aspirin 1 tab PO DAILY atorvastatin 80 mg PO DAILY atorvastatin 80 mg PO DAILY carvedilol 3.125 mg PO BID dapagliflozin propanediol (Farxiga) 10 mg PO DAILY docusate sodium 100 mg PO BID ergocalciferol (vitamin D2) 1,250 mcg PO QWEEK evolocumab (Repatha SureClick) 140 mg subcut Q2W 30 days finasteride 5 mg PO DAILY ketotifen fumarate 0.025%(0.035%) (Eye Itch Relief) 1 drp ophthalmic (eye) BID PRN montelukast 10 mg PO DAILY pantoprazole 40 mg PO DAILY 90 days sacubitril-valsartan 49-51 mg (Entresto) 1 tab PO BID torsemide 20 mg PO DAILY triamcinolone acetonide 2 sprays intranasal DAILY HPI Comments Details: A 63 y/o male seen in November after EGD/colon- he c/ breakthrough so the Carafate break through reflux Completed a 4 wk course-carafate- pantoprazole 40-sx improved- Changes your diet-beneficial- he has continue pantoprazole 40 mg - Appetite is good He has no bowel Reviewed procedure report as well as pathology recommendations once again No nausea, vomiting hematemesis, hematochezia fever or chills PFSH Medical History (Updated 12/20/23 @ 11:47 by Tamara Klein PA-C) Aortic stenosis CKD (chronic kidney disease) Paroxysmal A-fib Ischemic cardiomyopathy GERD (gastroesophageal reflux disease) Atherosclerosis History of [place] (myocardial infarction) PUD (peptic ulcer disease) HTN (hypertension) HLD (hyperlipidemia) CAD (coronary artery disease) Surgical History Hx of colonoscopy Hx of esophagogastroduodenoscopy History of cardiac defibrillator placement S/P CABG x 4 History of cardiac catheterization Hx of heart artery stent Hx of cholecystectomy Family History Father No problems noted. Mother Myocardial infarction CVD (cardiovascular disease) Social History Housing: Apartment Patient Tobacco Use Status: Former Tobacco user Quit Date: 1979 Cigarette Packs Per Day: 1 Years Smoked: 12 e-Cigarette/Vaping Use: Never Used Second Hand Smoke Exposure: No Current occupational status: unemployed Cognitive needs: No Hearing needs: No Vision needs: No Physical Exam Vital Signs: Last Vital Signs Pulse 80 02/16/24 08:02 BP 96/56 L 02/16/24 08:02 BMI result Body Mass Index 27.9 Const General: cooperative, healthy appearing, comfortable, no acute distress and well developed Orientation/consciousness: patient oriented x3 Limitations: no limitations Resp Effort & Inspection: normal respiratory effort and able to speak in complete sentences Neuro General: patient oriented x3 Extrem General: Yes full ROM Psych Appearance: grossly normal and well kempt Mental Status: mental status grossly normal Speech and movement: Normal speech and movement present Affect: normal affect Attitude: cooperative Thought process: Normal thought process present Thought content: Normal thought content present Insight: Good insight present (Psych) Judgement: Good judgement present (Psych) Assessment & Plan Assessment & Plan (1) Pete's esophagus determined by endoscopy: Comment: No dysplasia Code(s): K22.70 - 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 He is made dietary modifications is benefit which he will continue Encouraged to fall with any questions or concerns He will follow-up p.r.n. Coding Level of Care Code Est Pt Level 3 (96128) Diagnoses Pete's esophagus determined by endoscopy K22.70 Erosive esophagitis K22.10 Schatzki's ring K22.2 Time Spent (min) 25
[2024-02-16 08:02] VITALS: BP 96/56; PULSE 80; BMI 27.9
== END 2024-02-16 08:42 | disposition home or self-care (01) ==
PROVIDERS: PCP Nurse Practitioner Family; Visit Provider Physician Assistant
DX: K22.70 Barrett's esophagus without dysplasia (principal); K22.2 Esophageal obstruction
CPT/HCPCS: 99213

== ENCOUNTER → 2024-02-16 07:56 | Outpatient (BNVA) | payer OTHER, SELFPAY | PROVIDERS: PCP Nurse Practitioner Family; Visit Provider Physician Assistant | DX: K22.70 Barrett's esophagus without dysplasia (principal); K22.10 Ulcer of esophagus without bleeding; K22.2 Esophageal obstruction | CPT/HCPCS: 99212 ==

== ENCOUNTER 2024-05-24 07:34 | Outpatient (AMB) | payer OTHER, SELFPAY ==
--- NOTE | 2024-05-24 07:36 | MHC.PC.OV ---
Vital Signs 05/24/24 07:37 Height 5 ft 10 in Weight 186 lb BMI 26.7 BP 98/62 Blood Pressure Location Lt brachial Position Sitting Pulse 61 Pulse Source Pulse Oximeter Pulse Oximetry (%) 96 Oxygen Delivery Method Room Air Intake Visit Reasons: Annual PE- NEEDS PHQ9 Intake Note: Pt is here today for his PE Allergies No Known Allergies [No Known Allergies*] Allergy (Verified 05/24/24 08:13) Medication List - Last Reconciled 05/24/24 by DESTINY Leonard aspirin 1 tab PO DAILY atorvastatin 80 mg PO DAILY dapagliflozin propanediol (Farxiga) 10 mg PO DAILY evolocumab (Repatha SureClick) 140 mg subcut Q2W 30 days finasteride 5 mg PO DAILY ketotifen fumarate 0.025%(0.035%) (Eye Itch Relief) 1 drp ophthalmic (eye) BID PRN montelukast 10 mg PO DAILY pantoprazole 40 mg PO DAILY 90 days sacubitril-valsartan 49-51 mg (Entresto) 1 tab PO BID torsemide 20 mg PO DAILY triamcinolone acetonide 2 sprays intranasal DAILY Tobacco use date assessed: 05/24/24 Dental Screening Dental Screen Date: 05/24/24 Did you have a dental visit in the last 12 months?: No Did you have a dental problem in the last 6 months where you did not have access to dental care?: No Was dental information given to patient?: Patient declined HPI Annual PE- NEEDS PHQ9 HPI Details Pt is here for a PE. Will order labs. Colon screen is up to date. Pt follows up with cardiology, vascular, nephrology, GI, and urology. Pt will ask for vaccines through his pharmacy [facility] Medical History Aortic stenosis CKD (chronic kidney disease) Paroxysmal A-fib Ischemic cardiomyopathy GERD (gastroesophageal reflux disease) Atherosclerosis History of [place] (myocardial infarction) PUD (peptic ulcer disease) HTN (hypertension) HLD (hyperlipidemia) CAD (coronary artery disease) Surgical History Hx of colonoscopy Hx of esophagogastroduodenoscopy History of cardiac defibrillator placement S/P CABG x 4 History of cardiac catheterization Hx of heart artery stent Hx of cholecystectomy Family History Father No problems noted. Mother Myocardial infarction CVD (cardiovascular disease) Social History Housing: Apartment Patient Tobacco Use Status: Former Tobacco user Cigarette Packs Per Day: 1 Years Smoked: 12 e-Cigarette/Vaping Use: Never Used Second Hand Smoke Exposure: No Current occupational status: unemployed Cognitive needs: No Hearing needs: No Vision needs: No Questionnaire PHQ-9 Over the last 2 weeks, how often have you been bothered by any of the following problems? 1. Little interest or pleasure in doing things: not at all 2. Feeling down, depressed, or hopeless: not at all 3. Trouble falling or staying asleep, or sleeping too much: not at all 4. Feeling tired or having little energy: not at all 5. Poor appetite or overeating: not at all 6. Feeling bad about yourself - or that you are a failure or have let yourself or your family down: not at all 7. Trouble concentrating on things, such as reading the newspaper or watching television: not at all 8. Moving or speaking so slowly that other people could have noticed. Or the opposite - being so fidgety or restless that you have been moving around a lot more than usual: not at all 9. Thoughts that you would be better off or of hurting yourself in some way: not at all Total score: 0 Depression Screening Interpretation: Negative Depression Screening Done: Yes 26322 - PHQ-9 Billing: Yes Source: Developed by Drs. Antonio Marquez, Wilda Barrientos, Bo Grider and colleagues, with an educational poly from [employer]. Thrive Questionnaire Date Thrive assessed: 01/17/23 I am a: Patient What is your living situation today?: I have a steady place to live Within the past 12 months, did the food you bought not last and you didn't have the money to get more?: Never true Within the past 12 months, did you worry whether your food would run out before you got money to buy more?: Never true Do you have trouble paying for medicines?: No Do you have trouble getting transportation to medical appointments?: No Do you have trouble paying your heating and electricity bill?: No Do you have trouble taking care of your child, family member or friend?: No Do you have trouble with day-to-day activities such as bathing, preparing meals, shopping, managing finances, etc.?: No Are you currently unemployed and looking for a job?: No Are you interested in more education?: No Currently or been in a relationship where the following occur: No concerns reported THRIVE Score: 0 AUDIT C Alcohol Use Questionnaire (AUDIT-C) 1. How often do you have a drink containing alcohol?: Never Total Score: 0 LUCRETIA-7 AMB Questionnaire LUCRETIA-7 Date LUCRETIA - 7 assessed: 05/24/24 Feeling nervous, anxious, or on edge: 0 = Not at all Not being able to stop or control worryin = Not at all Worrying too much about different things: 0 = Not at all Trouble relaxin = Not at all Being so restless that it is hard to sit still: 0 = Not at all Becoming easily annoyed or irritable: 0 = Not at all Feeling afraid as if something awful might happen: 0 = Not at all Total LUCRETIA-7 score (0-4 normal; 5-9 mild; 10-14 moderate; 15-21 severe): 0 Source: Developed by Drs. Antonio Marquez, Wilda Barrientos, Bo Grider and colleagues, with an educational poly from [employer]. LUCRETIA-7 Assessment Billing LUCRETIA-7 Assessment Tool: LUCRETIA-7 Assessment 58997 Review of Systems Const Denies chills and Denies fever(s) Eyes Denies blurry vision ENT Denies vertigo, Denies dizziness and Denies sore throat Card Denies chest pain at rest, Denies chest pain with activity, Denies diaphoresis, Denies dyspnea and Denies dyspnea on exertion Resp Denies cough, Denies dyspnea, Denies dyspnea on exertion and Denies wheezing GI Denies abdominal pain, Denies melena, Denies hematochezia, Denies constipation, Denies diarrhea and Denies loose stools Denies hematuria Musc Denies numbness and Denies tingling Skin/Breast Denies lesions Neuro Denies vertigo, Denies dizziness, Denies numbness and Denies tingling Psych Denies anxiety, Denies depression, Denies homicidal ideation, Denies suicidal ideation and Denies other (substance abuse) Aller/Immun Denies wheezing Physical exam (Primary Care) Vital Signs: Last Vital Signs Pulse 61 05/24/24 07:37 BP 98/62 05/24/24 07:37 Pulse Ox 96 05/24/24 07:37 Oxygen Delivery Method Room Air 05/24/24 07:37 BMI result Body Mass Index 26.7 Tobacco/Smoking Status: Tobacco use Status Tobacco use date assessed 05/24/24 05/24/24 07:42 Patient Tobacco Use Status Former Tobacco user 05/24/24 07:42 e-Cigarette/Vaping Use Never Used 05/24/24 07:42 PHQ-9: PHQ-9 Score PHQ-9: Total score 0 05/24/24 07:53 Depression Screening Interpretation: Negative Thrive Assessment: Date of Thrive Assessment Date Thrive assessed 01/17/23 05/24/24 07:42 Currently or been in a relationship where the following occur: No concerns reported Const General: cooperative Nutritional Appearance: well nourished Orientation/consciousness: patient oriented x3 HENMT Head: Yes normal to inspection, Yes normocephalic and Yes atraumatic Ears: TM's normal bilaterally Eyes General: appearance normal, both eyes and all related structures Alignment and Position: alignment normal and position normal Neck Neck: Yes normal visual inspection, Yes no lymphadenopathy and Yes supple Resp Effort & Inspection: normal respiratory effort Auscultation: clear to auscultation bilaterally Cardio Rate: regular rate Rhythm: regular rhythm Heart sounds: S1 normal heart sound present, S2 normal heart sound present and Murmur heart sound present systolic GI Palpation (GI): Soft to palpation and nontender Auscultation: normal bowel sounds Male General Exam: Yes normal external exam Penis: normal penis Scrotum: scrotum normal, testes descended bilaterally and no inguinal hernias Testes: no testicular mass Skin Rashes: no rashes Neuro General: patient oriented x3, moves all extremities, no focal motor deficits and deep tendon reflexes 2+ bilaterally Romberg Test: Negative Psych Appearance: grossly normal Mental Status: mental status grossly normal Speech and movement: Normal speech and movement present Affect: normal affect Attitude: cooperative Thought process: Normal thought process present Thought content: Normal thought content present Insight: Good insight present (Psych) Judgement: Good judgement present (Psych) Assessment and Plan Assessment & Plan (1) Screening PSA (prostate specific antigen): Code(s): Z12.5 - Encounter for screening for malignant neoplasm of prostate Plan: PSA ordered (2) Physical exam: Code(s): Z00.00 - Encounter for general adult medical examination without abnormal findings Plan: Labs ordered Plan The patient agreed to the use of a medical appointment clerk for this encounter. Scribed for DESTINY Velarde by Clotilde Lopes medical appointment clerk, on 05/24/2024 at 07:50 EST. Orders: Orders Prostate Specific Antigen Scr Today Z12.5 - Encounter for screening for malignant neoplasm of prostate Complete Blood Count Auto Diff Today Z00.00 - Encounter for general adult medical examination without abnormal findings Comprehensive [place]. Panel Fast Today Z00.00 - Encounter for general adult medical examination without abnormal findings TSH reflex Free T4 Today Z00.00 - Encounter for general adult medical examination without abnormal findings UA CC w/rflx Micro + Cult Today Z00.00 - Encounter for general adult medical examination without abnormal findings Lipid Panel Today Z00.00 - Encounter for general adult medical examination without abnormal findings Coding Level of Care Code Est Pt Prev Care 40-64y(67988) Diagnoses Screening PSA (prostate specific antigen) Z12.5 Physical exam Z00.00 Additional Codes LUCRETIA-7 Assessment Billing - LUCRETIA-7 Assessment Tool: LUCRETIA-7 Assessment 77177 ([id number])
[2024-05-24 07:37] VITALS: BP 98/62; PULSE 61; O2SAT 96; BMI 26.7
== END 2024-05-24 08:03 | disposition home or self-care (01) ==
PROVIDERS: PCP Nurse Practitioner Family; Visit Provider Nurse Practitioner Family
DX: Z00.00 Encounter for general adult medical examination without abnormal findings (principal); Z12.5 Encounter for screening for malignant neoplasm of prostate
CPT/HCPCS: 99396

== ENCOUNTER 2024-09-21 08:40 | Outpatient (REF) | payer OTHER, SELFPAY ==
[2024-09-21 10:04] LABS: Appearance Urine Clear; Color Urine Yellow; Glucose Urine UA >=1000 mg/dL (Negative); Leukocyte Esterase Urine Negative (Negative); MANUAL DIFF FLAG NO; Nitrite Urine Negative (Negative); Specific Gravity - Urine 1.015 (1.005-1.025); UMIC TRIGGER UACC YES; Urine Blood Negative (Negative); Urine Ketones Negative (Negative); Urine Protein Negative (Neg-Trace)
[2024-09-21 10:07] LABS: Bacteria Urine None Seen (None Seen); Hyaline Casts Urine 0-2 /LPF (0-2); RBC Urine 0-2 /HPF (0-2); Squamous Epithelial Cell Urine 0-2 /HPF (0-2); WBC Urine 0-5 /HPF (0-5)
[2024-09-21 10:13] LABS: Basophils Percent Auto 0.5 % (0-2); Eosinophils Absolute Auto 0.1 X10*3/uL (0.0-0.4); Eosinophils Percent Auto 0.9 % (0-4); Hematocrit 50.2 % (42.0-52.0); Hemoglobin 16.6 g/dl (14.0-18.0); Imm Gran Abs Auto 0.02 X10*3/uL (0.00-0.03); Imm Gran Pct Auto 0.3 % (0.0-0.4); Lymphocytes Absolute Auto 1.2 X10*3/uL (1.2-4.9); Lymphocytes Percent Auto 18.1 % (20-40); Mean Corpuscular HGB Conc 33.1 g/dl (31.0-36.0); Mean Corpuscular Hemoglobin 31.4 pg (27.0-33.0); Mean Corpuscular Volume 95.1 fL (80.0-98.0); Mean Platelet Volume 9.3 fL (9.4-12.4); Monocytes Absolute Auto 0.6 X10*3/uL (0.1-1.2); Monocytes Percent Auto 8.9 % (2-11); Neutrophils Absolute Auto 4.6 x10*3/uL (2.0-8.3); Neutrophils Percent Auto 71.3 % (45-73); Platelet Count 161 X10*3/uL (160-400); Red Blood Count 5.28 X10*6/uL (4.60-5.80); Red Cell Distribution Width 13.7 % (11.0-16.0); White Blood Count 6.4 X10*3/uL (4.8-10.8)
[2024-09-21 10:59] LABS: Prostate Specific Antigen Scr 0.22 ng/mL (<0.05-4.0)
[2024-09-21 11:03] LABS: Alanine Aminotransferase 33 U/L (0-40); Albumin Level 4.2 g/dL (3.5-5.0); Alkaline Phosphatase 63 U/L (39-117); Anion Gap 12 (12-20); Aspartate Amino Transferase 35 U/L (5-37); Bilirubin Total 0.7 mg/dL (0.0-1.0); Blood Urea Nitrogen 21 mg/dL (9-16); Calcium 9.5 mg/dL (8.4-10.2); Carbon Dioxide 28 mmol/L (22-29); Chloride 105 mmol/L (96-108); Cholesterol 98 mg/dL (<200); Estimated Glomerular Filt Rate > 60; Glucose Fasting 104 mg/dL (60-99); HDL Cholesterol 50 mg/dL (>40); LDL Cholesterol Calculated 32 mg/dL (<100); Potassium 4.5 mmol/L (3.3-5.1); Sodium 140 mmol/L (135-145); TSH reflex Free T4 1.97 uIU/mL (0.32-4.0); Total Protein 7.4 g/dL (6.5-8.0); Triglycerides 83 mg/dL (<150)
== END 2024-09-21 08:41 | disposition home or self-care (01) ==
LOC: HO.HMGCLDS 08:40
PROVIDERS: PCP Nurse Practitioner Family; Visit Provider Nurse Practitioner Family
DX: Z00.00 Encounter for general adult medical examination without abnormal findings (principal); Z12.5 Encounter for screening for malignant neoplasm of prostate
CPT/HCPCS: 36415; 80053; 80061; 81001; 81003; 84153; 84443; 85025

== ENCOUNTER 2024-11-21 10:03 | Outpatient (AMB) | payer OTHER, SELFPAY ==
[2024-11-21 10:24] VITALS: BP 122/80; PULSE 78; RESP 17; TEMP 36.6; O2SAT 97; BMI 28.4
--- NOTE | 2024-11-21 10:24 | MHC.PC.OV ---
Vital Signs 11/21/24 10:24 Height 5 ft 10 in Weight 198 lb BMI 28.4 BP 122/80 Blood Pressure Location Lt brachial Position Sitting Respiration 17 Pulse 78 Pulse Source Pulse Oximeter Temp 97.9 F Temp Source Oral Pulse Oximetry (%) 97 Oxygen Delivery Method Room Air Intake Visit Reasons: 6 month follow up Intake Note: Pt is here today for 6 month follow up Allergies No Known Allergies [No Known Allergies*] Allergy (Verified 11/21/24 10:25) Medication List - Last Reconciled 11/21/24 by SO LeonardP- aspirin 1 tab PO DAILY atorvastatin 80 mg PO DAILY azelastine 1 spray intranasal BID dapagliflozin propanediol (Farxiga) 10 mg PO DAILY evolocumab (Repatha SureClick) 140 mg subcut Q2W 30 days finasteride 5 mg PO DAILY ketotifen fumarate 0.025%(0.035%) (Eye Itch Relief) 1 drp ophthalmic (eye) BID PRN metoprolol succinate ER 50 mg PO DAILY montelukast 10 mg PO DAILY pantoprazole 40 mg PO DAILY 90 days sacubitril-valsartan 49-51 mg (Entresto) 1 tab PO BID tamsulosin 0.4 mg PO DAILY torsemide 20 mg PO DAILY triamcinolone acetonide 2 sprays intranasal DAILY Tobacco use date assessed: 11/21/24 Fall risk assessment: No Falls in past year Last assessed Fall Risk: 11/21/24 Dental Screening Dental Screen Date: 11/21/24 Did you have a dental visit in the last 12 months?: Yes Did you have a dental problem in the last 6 months where you did not have access to dental care?: No Was dental information given to patient?: Patient has dentist HPI 6 month follow up HPI Details Chief Complaint The patient is perfectly stable regarding his hypertension. History of Present Illness The patient is a 64-year-old male presenting with a need for follow-up for hypertension management. The history of his essential hypertension indicates stable control with no reported issues such as chest pain, shortness of breath, or edema, suggesting effective treatment. The patient's care, involving both a director of finance and a topper press operator automatic, reflects multidisciplinary oversight likely aimed at addressing cardiovascular and renal health aspects. Laboratory tests conducted in the past have returned favorable results, and a future follow-up is planned in six months. No additional complaints related to his hypertensive condition were noted during this visit. Social History Health Maintenance Review of Systems - Cardiac: Denies chest pain - Respiratory: Denies shortness of breath - Vascular: Denies swelling or edema Physical Exam General: Cooperative, healthy appearing, comfortable, no acute distress and well developed Orientation: Patient oriented x3 Limitations: No limitations Head: Normal to inspection Ears: Hearing grossly normal bilaterally Nose: Normal external nose present Face and sinus: Normal facial exam Eyes: Appearance normal, both eyes and all related structures Neck: Normal visual inspection and Yes full ROM Respiratory: Normal respiratory effort and able to speak in complete sentences. Clear to auscultation bilaterally Cardiovascular: Regular rate and rhythm. Normal S1 and S2, systolic murmur GI: Normal to inspection. Soft to palpation and nontender Skin: No rashes or lesions noted Neuro: Patient oriented x3 Extremities: Normal to inspection Results - Labs: Last impressive laboratory results noted at the end of August of the previous year. Plan The management of the patient's essential hypertension remains stable under the supervision of a director of finance and topper press operator automatic. Given the compelling lab results and lack of symptoms, no new interventions were deemed necessary. Continued vigilance through regular medical consultations and lab checks will help sustain the current control. Planning for another evaluation in six months aligns with the goal of thorough and consistent follow-up in managing chronic hypertension. Discussion Notes During this visit, I reiterated the importance of regular follow-up for essential hypertension, which this patient is managing with the assistance of a director of finance and topper press operator automatic. We discussed the reassuring nature of recent lab work indicating effective management, and I emphasized the importance of continued multidisciplinary care. I explained that we would continue monitoring his condition through scheduled evaluations, with the next follow-up in six months. The patient understands the need to remain vigilant for any potential symptoms and to maintain this regular check-up schedule. Patient Instructions - Continue current hypertension treatment regimens. - Follow up with your director of finance and topper press operator automatic as scheduled. - Monitor for any new symptoms such as chest pain, shortness of breath, or swelling, and report them promptly. - Plan for a follow-up visit in approximately six months for reevaluation. [facility] Medical History (Updated 06/26/24 @ 07:[address] [facility]) Mitral valve regurgitation Lateral epicondylitis Peripheral artery disease (atherosclerosis) Carotid artery disease Ventricular tachycardia Aortic stenosis CKD (chronic kidney disease) Paroxysmal A-fib Ischemic cardiomyopathy GERD (gastroesophageal reflux disease) Atherosclerosis History of [place] (myocardial infarction) PUD (peptic ulcer disease) HTN (hypertension) HLD (hyperlipidemia) CAD (coronary artery disease) Surgical History Hx of colonoscopy Hx of esophagogastroduodenoscopy History of cardiac defibrillator placement S/P CABG x 4 History of cardiac catheterization Hx of heart artery stent Hx of cholecystectomy Family History Father No problems noted. Mother Myocardial infarction CVD (cardiovascular disease) Social History Housing: Apartment Patient Tobacco Use Status: Former Tobacco user Cigarette Packs Per Day: 1 Years Smoked: 12 e-Cigarette/Vaping Use: Never Used Second Hand Smoke Exposure: No Current occupational status: unemployed Cognitive needs: No Hearing needs: No Vision needs: No Questionnaire PHQ-9 Over the last 2 weeks, how often have you been bothered by any of the following problems? 1. Little interest or pleasure in doing things: not at all 2. Feeling down, depressed, or hopeless: not at all 3. Trouble falling or staying asleep, or sleeping too much: not at all 4. Feeling tired or having little energy: not at all 5. Poor appetite or overeating: not at all 6. Feeling bad about yourself - or that you are a failure or have let yourself or your family down: not at all 7. Trouble concentrating on things, such as reading the newspaper or watching television: not at all 8. Moving or speaking so slowly that other people could have noticed. Or the opposite - being so fidgety or restless that you have been moving around a lot more than usual: not at all 9. Thoughts that you would be better off or of hurting yourself in some way: not at all Total score: 0 Depression Screening Interpretation: Negative Depression Screening Done: Yes 20744 - PHQ-9 Billing: Yes Source: Developed by Drs. Antonio Marquez, Wilda Barrientos, Bo Grider and colleagues, with an educational poly from [email or web address]. Thrive Questionnaire Date Thrive assessed: 11/21/24 I am a: Patient What is your living situation today?: I have a steady place to live Within the past 12 months, did the food you bought not last and you didn't have the money to get more?: I choose not to answer this question Within the past 12 months, did you worry whether your food would run out before you got money to buy more?: I choose not to answer this question Do you have trouble paying for medicines?: I choose not to answer this question Do you have trouble getting transportation to medical appointments?: I choose not to answer this question Do you have trouble paying your heating and electricity bill?: I choose not to answer this question Do you have trouble taking care of your child, family member or friend?: I choose not to answer this question Do you have trouble with day-to-day activities such as bathing, preparing meals, shopping, managing finances, etc.?: I choose not to answer this question Are you currently unemployed and looking for a job?: I choose not to answer this question Are you interested in more education?: I choose not to answer this question Please select the resources that you would like help with: None Currently or been in a relationship where the following occur: I choose not to answer THRIVE Score: 0 AUDIT C Alcohol Use Questionnaire (AUDIT-C) 1. How often do you have a drink containing alcohol?: Never 3. How often do you have six or more drinks on one occasion?: Never Total Score: 0 Score Reviewed/Action Taken: Yes LUCRETIA-7 AMB Questionnaire LUCRETIA-7 Date LUCRETIA - 7 assessed: 11/21/24 Feeling nervous, anxious, or on edge: 0 = Not at all Not being able to stop or control worryin = Not at all Worrying too much about different things: 0 = Not at all Trouble relaxin = Not at all Being so restless that it is hard to sit still: 0 = Not at all Becoming easily annoyed or irritable: 0 = Not at all Feeling afraid as if something awful might happen: 0 = Not at all Total LUCRETIA-7 score (0-4 normal; 5-9 mild; 10-14 moderate; 15-21 severe): 0 Source: Developed by Drs. Antonio Marquez, Wilda Barrientos, Bo Grider and colleagues, with an educational poly from [email or web address]. LUCRETIA-7 Assessment Billing LUCRETIA-7 Assessment Tool: LUCRETIA-7 Assessment 23223 Physical exam (Primary Care) Vital Signs: Last Vital Signs Temp 97.9 F 11/21/24 10:24 Pulse 78 11/21/24 10:24 Resp 17 11/21/24 10:24 BP 122/80 11/21/24 10:24 Pulse Ox 97 11/21/24 10:24 Oxygen Delivery Method Room Air 11/21/24 10:24 BMI result Body Mass Index 28.4 Tobacco/Smoking Status: Tobacco use Status Tobacco use date assessed 11/21/24 11/21/24 10:26 Patient Tobacco Use Status Former Tobacco user 11/21/24 10:26 e-Cigarette/Vaping Use Never Used 11/21/24 10:26 PHQ-9: PHQ-9 Score PHQ-9: Total score 0 11/21/24 10:39 Depression Screening Interpretation: Negative Thrive Assessment: Date of Thrive Assessment Date Thrive assessed 11/21/24 11/21/24 10:26 Currently or been in a relationship where the following occur: I choose not to answer Coding Level of Care Code Est Pt Level 3 (88612) Diagnoses HTN (hypertension) I10 Screening PSA (prostate specific antigen) Z12.5 Additional Codes LUCRETIA-7 Assessment Billing - LUCRETIA-7 Assessment Tool: LUCRETIA-7 Assessment 87303 ([id number]) PHQ-9 - 16730 - PHQ-9 Billing: Yes ([id number]) Assessment & Plan Assessment & Plan (1) HTN (hypertension): Code(s): I10 - Essential (primary) hypertension Category: Medical (2) Screening PSA (prostate specific antigen): Code(s): Z12.5 - Encounter for screening for malignant neoplasm of prostate Category: Medical Plan . Orders: Orders Comprehensive [place]. Panel Fast Today I10 - Essential (primary) hypertension TSH reflex Free T4 Today I10 - Essential (primary) hypertension Lipid Panel Today I10 - Essential (primary) hypertension Prostate Specific Antigen Scr Today Z12.5 - Encounter for screening for malignant neoplasm of prostate Complete Blood Count Auto Diff Today I10 - Essential (primary) hypertension UA CC w/rflx Micro + Cult Today I10 - Essential (primary) hypertension
--- OUTSIDE RECORDS SUMMARY | 2024-11-21 12:05 | XMS_ITS | Clinical Summary ---
Author Organization [facility] Address [address] [facility] [place] [address] Phone Care Team Providers Care Bilingual Counter Sales Retail Name Role Phone Dimitris Carter NURSE PRACTICAL Primary Care Provider [phone] Allergies No known active allergies Medications BUDESONIDE ORAL 1 [place] by Nasal route 2 times daily. Active aspirin 81 mg EC tablet Take 81 mg by mouth daily. Active cholecalciferol (VITAMIN D-3) 50 mcg (2,000 unit) capsule Take by mouth once a week. Active evolocumab (Repatha Syringe) 140 mg/mL syringe Inject into the skin every 14 days. Active metoprolol succinate (TOPROL-XL) 50 mg 24 hr tablet Take 1 tablet (50 mg total) by mouth 1 (one) time each day. 4 Active oxymetazoline (No Drip) 0.05 % nasal spray 2 Sprays by Nasal route 2 times daily. Active sacubitriL-valsa rtan (Entresto) 49-51 mg per tablet Take 1 tablet by mouth 2 (two) times a day. 4 Active dapagliflozin propanediol (Farxiga) 10 mg tablet Take 1 tablet (10 mg total) by mouth 1 (one) time each day. 90 tablet 1 5 Active dapagliflozin propanediol (Farxiga) 10 mg tablet Take 1 tablet (10 mg total) by mouth 1 (one) time each day. 4 10/24/19 25 Discontinu ed(Reorder ) Active Problems Problem Noted Date Diagnosed Date Atherosclerosis of habematolel co ronary artery of habematolel heart without angina pectoris 06/20/2024 VT (ventricular tachycardia) 06/20/2024 Carotid artery disease 02/09/2023 Peripheral artery disease 02/09/2023 Hx of CABG 02/09/2023 Hypertension 02/09/2023 Nonrheumatic aortic valve stenosis 02/09/2023 Nonrheumatic mitral valve regurgitation 02/10/20 Aortic ejection murmur 12/14/2021 Dyspnea on exertion 12/14/2021 Ischemic cardiomyopathy 12/14/2021 Coronary atherosclerosis of habematolel coronary vess el 09/07/2005 Overview (10/19/2024): Followed by dr gunter He advises [facility] plavix unless bleeding Lateral epicondylitis 09/07/2005 Overview (10/19/2024): IMO update Mixed hyperlipidemia 09/07/2005 Encounters Date Type Department Care Team Description 10/24/2024 Telephone [facility] [address] [facility] [address] [place] [phone] Dimitris Gunter MD Med Refill 10/02/2024 9:30 PM EST Ancillary Procedure [facility] Cardiology [facility] [address] [place] [phone] from Last 3 Months Immunizations Name Administration Dates Next Due Influenza Quadravalent, MDCK , 0.5ml, preservative free (Flucelvax) 6mo and older 07/06/2023 Influenza Quadrivalent, 0.5m l, preservative free (Fluarix; FluLaval; Fluzone) ages 6mo and older (Afluria) 3yo and older 07/09/2022 Influenza Quadrivalent, with preservative (Fluzone; Afluria) 6mo and older 06/24/2020,08/27/2019 Influenza trivalent, 0.5mL, preservative free (Fluarix; FluLaval; Fluzone) ages 6mo and older (Afluria) 3 years and older 08/05/2024 Influenza, Unspecified 08/11/2019 Pneumococcal polysaccharide 23 valent (Pneumovax 23) 2yo and older 08/11/2019,02/28/2009 RSV, bivalent, protein subun it RSVpreF, 0.5mL, Preservative Free (Arexvy) 60yo and older 09/03/2023 Td Tetanus diptheria (Tdvax) 7yo and older 09/08 Tdap Tetanus diptheria acell ular pertussis (Boostrix; Adacel) 7yo and older 08/02/2023 Surgical History Surgery Date Site/Laterality Comments CHOLECYSTECTOMY PROCEDURE: HISTORICAL CHOLECYSTECTOMY; COMMENT: 2003 ESOPHAGOGASTRODUODENOSCOPY 01/02/08 PROCEDURE: [place] EGD TRANSORAL BIOPSY SINGLE/MULTIPLE; COMMENT: erosive esophagitis, r/o christina's. Erosive gastritis-bx:mild chronic inflammation, gastric ulcer Medical History Medical History Date Comments Mixed hyperlipidemia 09/07/2005 DX:Mixed hy perlipidemia Coronary atherosclerosis of unspecified type of vessel, habematolel or graft 09/07/2005 DX:Coronary atherosclerosis of unspecified type of vessel, habematolel or graft Lateral epicondylitis of elbow 09/07/2005 D X:Lateral epicondylitis of elbow Coronary atherosclerosis of unspecified type of vessel, habematolel or graft 09/07/2005 DX:Coronary atherosclerosis of unspecified type of vessel, habematolel or graft Family History Medical History Relation Name Comments Heart attack Mother Relation Name Status Comments Brother 1 Alive cabg Brother 2 Alive Brother 3 Alive Brother 4 Alive Father Alive cabg Mother (Age 51) Sister 1 Alive Sister 2 Alive Social History Tobacco Use Types Packs/Day Years Used Date Smoking Tobacco: Former Cigarettes Q uit: 09/26/1981 Smokeless Tobacco: Never Alcohol Use Standard Drinks/Week Comments No 0 (1 standard drink = 0.6 oz pur e alcohol) Sex and Gender Information Value Date Recorded Sex Assigned at Not on file Legal Sex Male 2:37 AM EST Gender Identity Not on file Sexual Orientation Not on file Obstetrics History Last Filed Vital Signs Vital Sign Reading Time Taken Comments Blood Pressure 98/58 06/13/2024 9:40 AM EDT Pulse 72 06/13/2024 9:40 AM EDT Temperature - - Respiratory Rate - - Oxygen Saturation - - Inhaled Oxygen Concentration - - Weight 84.8 kg (187 lb) 06/13/2024 9:40 AM EDT Height 177.8 cm (5' 10 ) 06/13/2024 9:40 AM EDT Body Mass Index 26.83 06/13/2024 9:40 AM EDT Plan of Treatment Upcoming Encounters Date Type Department Care Team (Late st Contact Info) Description 04/16/2025 1:30 PM EDT Ancillary Procedure [facility] Cardiology [facility] [address] [place] [address] 05/28/2025 7:00 AM EDT Ancillary Procedure [facility] Card[facility] [address] [place] [phone] Health Maintenance Due Date Last Done Comments Zoster Vaccines (1 of 2) 2010 Pneumococcal Vaccine: 50+ Years (2 of 2 - PCV) 08/11/2020 08/11/2019, 02/28/2009 Cholesterol Screening (Lipid Panel) 09/04/2022 07/31/2007 Colorectal Cancer Screening: Colonoscopy 09/04/2022 Depression Screening 09/04/2022 HIV Screening 09/04/2022 Medicare Annual Wellness Visit 09/04/2022 Social Influencers of Health Screening 09/04/2022 Hypertension/CHF/CAD Annual BMP Blood Test 03/14/2025 03/14/2024, 03/14/2024 DTaP,Tdap,and Td Vaccines (3 - Td or Tdap) 08/02/2033 08/02/2023, 09/08/2005 Hepatitis C Screening Completed 01/02/2004 Pneumococcal Vaccine: Pediatrics (0 to 5 Years) and At-Risk Patients (6 to 64 Years) Aged Out 08/11/2019, 02/28/2009 No longer eligibl e based on patient's age to complete this topic RSV Immunization Patients 60+ Years Old Completed 09/03/2023 COVID-19 Vaccine Completed 08/05/2024, 08/2023, 07/06/2022, Additional history exists Influenza Vaccine Completed 08/05/2024, , 07/09/2022, Additional history exists HIB Vaccines Aged Out No longer eligi ble based on patient's age to complete this topic HPV Vaccines Aged Out No longer eligi ble based on patient's age to complete this topic Hepatitis A Vaccines Aged Out No long er eligible based on patient's age to complete this topic Hepatitis B Vaccines Aged Out No long er eligible based on patient's age to complete this topic IPV Vaccines Aged Out No longer eligi ble based on patient's age to complete this topic MMR Vaccines Aged Out No longer eligi ble based on patient's age to complete this topic Meningococcal ACWY Vaccine Aged Out N o longer eligible based on patient's age to complete this topic Meningococcal B Vacine Aged Out No lo nger eligible based on patient's age to complete this topic RSV Immunization Patients Under 20 months Aged Out No longer eligible based on patient's age to complete this topic Varicella Vaccines Aged Out No longer eligible based on patient's age to complete this topic Medical Devices Implanted Type Area Wireless Development Manager Device Identifier Shelf Expiration Date Model / Serial / Lot Bsci-Crm [id number] Implanted:04/26 (Quantity not on file) Cardiac ICD [employer] MGMT [id number] / [id number] / Procedures Procedure Name Priority Date/Time Associated Diagnosis Comments CARDIAC DEVICE CHECK- REMOTE- MURJ Routine 10/02/2024 9:27 PM EST ANNUAL BMP BLOOD TEST Routine 03/14/2024 LIPID PANEL Routine 07/31/2007 HEPATITIS C SCREENING Routine 01/02/2004 from Last 3 Months or Most Recently Relevant to Health Maintenance Results * Cardiac device check - Remote- MURJ (10/02/2024 9:27 PM EST) Date Time Interrogation Session [id number] CV DEVICE CHECK Type Interrogation Session Remote Scheduled CV DEVICE CHECK Implantable Pulse Generator Wireless Development Manager BSX CV DEVICE CHECK Implantable Pulse Generator Type ICD CV DEVICE CHECK Implantable Pulse Generator Model D233 CV DEVICE CHECK Implantable Pulse Generator Serial Number [id number] CV DEVICE CHECK Implantable Pulse Generator Implant Date 20230512 CV DEVICE CHECK Battery Remaining Percentage 100.00 CV DEVICE CHECK Battery Remaining Longevity 156.0 CV DEVICE CHECK Battery Status Beginning of Service CV DEVICE CHECK Capacitor Charge Time 10.300 CV DEVICE CHECK Peter Statistic RA Percent Paced 22.00 CV DEVICE CHECK Peter Statistic RV Percent Paced 2.00 CV DEVICE CHECK Atrial Tachy Statistic AT/AF [place] Percent 0.00 CV DEVICE CHECK Lead Channel Sensing Intrinsic Amplitude 3.600 CV DEVICE CHECK Lead Channel Setting Sensing Sensitivity 0.25 CV DEVICE CHECK Lead Channel Impedance Value 512 CV DEVICE CHECK Lead Channel Pacing Threshold Amplitude 1.000 CV DEVICE CHECK Lead Channel Pacing Threshold Pulse Width 0.4 CV DEVICE CHECK Lead Channel RA Pacing Threshold Date 2024-09-11 CV DEVICE CHECK Lead Channel Setting Pacing Amplitude 2.000 CV DEVICE CHECK Lead Channel Setting Pacing Pulse Width 0.4 CV DEVICE CHECK Lead Channel Sensing Intrinsic Amplitude 19.400 CV DEVICE CHECK Lead Channel Setting Sensing Sensitivity 0.60 CV DEVICE CHECK Lead Channel Impedance Value 442 CV DEVICE CHECK Lead Channel Pacing Threshold Amplitude 0.900 CV DEVICE CHECK Lead Channel Pacing Threshold Pulse Width 0.4 CV DEVICE CHECK Lead Channel RV Pacing Threshold Date 2024-09-11 CV DEVICE CHECK Lead Channel Setting Pacing Amplitude 2.000 CV DEVICE CHECK Lead Channel Setting Pacing Pulse Width 0.4 CV DEVICE CHECK Peter Setting Mode (NBG Code) DDDR CV DEVICE CHECK Peter Setting Lower Rate Limit 60 CV DEVICE CHECK Peter Setting AT Mode Switch Rate 170 CV DEVICE CHECK Peter Setting Maximum Tracking Rate 130 CV DEVICE CHECK Peter Setting Maximum Sensor Rate 130 CV DEVICE CHECK Peter Setting PAV Delay 180 CV DEVICE CHECK Peter Setting SAHARA Delay 150 CV DEVICE CHECK Therapy Statistic Recent Shocks Delivered 0 CV DEVICE CHECK Therapy Statistic Recent Shocks Aborted 0 CV DEVICE CHECK Therapy Statistic Recent ATP Delivered 0 CV DEVICE CHECK Shock Measured Impedance 68 CV DEVICE CHECK Zone Setting Type Category VF CV DEVICE CHECK Rate 205 CV DEVICE CHECK Therapies Burst,41J,41J,41J x 6 CV DEVICE CHECK Zone Setting Status On CV DEVICE CHECK Zone ID 1 CV DEVICE CHECK Zone Setting Type Category VT CV DEVICE CHECK Rate 170 CV DEVICE CHECK Therapies 3 x Burst,41J,41J,41J x 4 CV DEVICE CHECK Zone Setting Status On CV DEVICE CHECK Zone ID 2 CV DEVICE CHECK Zone Setting Type Category VT CV DEVICE CHECK Rate 150 CV DEVICE CHECK Zone Setting Status Monitor CV DEVICE CHECK Zone ID 3 CV DEVICE CHECK Date of Service 2024-10-02 CV DEVICE CHECK Anatomical Region Laterality Modality Device Interroga tion 09/12/2024 1:01 AM EST Impressions 10/02/2024 11:54 AM EST Normal Remote: With Events * Normal Device Function * Events or Alerts: 1 *PAT 8 Beats * Battery: Battery is at 100%, 13.00 yrs * Sensing, impedance and thresholds reviewed * Programmed parameters reviewed * Presenting rhythm reviewed * Heart Rate Histograms reviewed HeartLogic Index: Stable * HeartLogic diagnostics assessed through the device * Current HeartLogic HF Index: __1_ * No overt HF present Narrative Procedure Note Bridget Sarmiento PA - 10/02/2024 IMPRESSION: Normal Remote: With Events * Normal Device Function * Events or Alerts: 1 *PAT 8 Beats * Battery: Battery is at 100%, 13.00 yrs * Sensing, impedance and thresholds reviewed * Programmed parameters reviewed * Presenting rhythm reviewed * Heart Rate Histograms reviewed HeartLogic Index: Stable * HeartLogic diagnostics assessed through the device * Current HeartLogic HF Index: __1_ * No overt HF present Bridget BRANDON CV IMPLANTABLE CARDIAC DEVICE FL OCEDURES Final Result * Annual BMP Blood Test (03/14/2024) Pathologist [facility] Annual BMP Blood Test abstracted Result [facility] Historical Provider HEALTH MAINTENANCE Final Result * Lipid panel (07/31/2007) [facility] LDL/HDL Ratio 3 0 - 4 Triglycerides 125 0 - 150 mg/dL Cholesterol 162 0 - 200 mg/dL HDL 53 >=40 mg/dL LDL Cholesterol 84 0 - 100 mg/dL Blood Venous blood specimen / Unknown Result [facility] Historical Provider LAB BLOOD ORDERABLES Joy l Result * Hepatitis C Screening (01/02/2004) Pathologist [facility] Hepatitis C Screening abstracted Historical Provider HEALTH MAINTENANCE Final Result from Last 3 Months or Most Recently Relevant to Health Maintenance Insurance [facility] MEDICARE ADVANTAGE Care Teams Bilingual Counter Sales Retail Relationship Specialty Start Date End Date Dimitris Carter NP [address] [place], [place] PCP - General 11/26/21
--- OUTSIDE RECORDS SUMMARY | 2024-11-21 12:05 | XMS_ITS | Encounter Summary ---
Author Organization [facility] Address [address] [place] [address] Care Team Providers Care Private Duty Aide Name Role Phone Dimitris Carter NP Primary Care Provider [phone] Reason for Visit * Reason Onset Date Comments Med Refill 10/24/2024 Encounter Details Date Type Department Care Team (Late st Contact Info) Description 10/24/2024 Telephone [facility] [address] [facility] [address] [place] [phone] Dimitris Núñez MD [address] [place] [address],[address] [address] Med Refill Social History Tobacco Use Types Packs/Day Years [...] on file Sexual Orientation Not on file documented as of this encounter Ordered Prescriptions Prescription Sig Dispense Quantity Refills Last Filled Start Date End Date dapagliflozin propanediol (Farxiga) 10 mg tablet Take 1 tablet (10 mg total) by mouth 1 (one) time each day. 90 tablet 1 10/24/2024 documented in this encounter Progress Notes * Aranza Alexandra [place] - 10/24/2024 8:22 AM EST Tashi 06/19--efaxed the farxiga 10mg * Noemi Wang - 10/24/2024 8:05 AM EST The patient called requesting a refill for Farxiga 10 mg, 1 tablet daily, 90 day supply, pharmacy confirmed. documented in this encounter Plan of Treatment Upcoming Encounters Date Type Department Care Team (Late st Contact Info) Description 04/16/2025 1:30 PM EDT Ancillary Procedure [facility] Cardiology [facility] [address] [facility] [address] [place] [address] 05/28/2025 7:00 AM EDT Ancillary Procedure [facility] Cardiology [facility] [address] [facility] [address] [place] [address] documented as of this encounter Visit Diagnoses Not on filedocumented in this encounter Discontinued Medications Medication Sig Discontinue Reason Start Date End Da te dapagliflozin propanediol (Farxiga) 10 mg tablet Take 1 tablet (10 mg total) by mouth 1 (one) time each day. Reorder 12/13/2023 10/24/2024 documented as of this encounter Care Teams Private Duty Aide Relationship Specialty Start Date End Date Dimitris Carter NP [address] [place], [place] PCP - General 11/26/21 documented as of this encounter
--- OUTSIDE RECORDS SUMMARY | 2024-11-21 12:05 | XMS_ITS | Clinical Summary ---
Author Organization [facility] Address [address] [address] Phone Care Team Providers Care Debrander Name Role Phone BradcynthiaDimitris FAMILY CONSUMER SCIENTIST Primary Care Provider [phone] Allergies Active Allergy Reactions Criticality Noted Date Comments Dust Mite Extract 12/28/2021 Other reaction(s): congestion Medications aspirin (ST BROCK) 81 MG EC tablet Take 1 tablet by mouth 1 (one) time each day Active atorvastatin (LIPITOR) 80 MG tablet Take 1 tablet by mouth 1 (one) time each day Active clopidogrel (PLAVIX) 75 MG tablet Take 1 tablet by mouth 1 (one) time each day Active triamcinolone (NASACORT) 55 MCG/ACT nasal inhaler Administer 2 sprays into each nostril 1 (one) time each day 1 Active Repatha SureClick 140 MG/ML solution auto-injector 2 Active docusate sodium (COLACE) 100 MG capsule TAKE 1 CAPSULE BY MOUTH TWICE A DAY NEEDED FOR CONSTIPATION 2 Active carvedilol (COREG) 3.125 MG tablet Take 3.125 mg by mouth in the morning and 3.125 mg in the evening. Take with meals. 2 Active tamsulosin (FLOMAX) 0.4 MG 24 hr capsule Take 0.4 mg by mouth every night 2 Active budesonide (RHINOCORT AQ) 32 MCG/ACT nasal spray USE 2 SPRAYS IN EACH NOSTRIL DAILY 2 Active omeprazole (PriLOSEC) [address] capsule 3 Active Entresto 49-51 MG per tablet Take 1 tablet by mouth in the morning and 1 tablet in the evening. 3 Active montelukast (SINGULAIR) 10 MG tablet 3 Active ketotifen (ZADITOR) 0.025 % ophthalmic solution INSTILL 1 DROP INTO ECH EYE TWICE DAILY NEEDED 3 Active Farxiga 10 MG tablet 3 Active DULCOLAX 5 MG EC tablet TAKE 4 TABLETS BY MOUTH ONCE UPON AWAKENING WITH A LARGE GLASS OF WATER FOR COLONOSCOPY PREP FOR 1 DAY THE DAY BEFORE PROCEDURE. 3 Active Azelastine HCl 137 MCG/SPRAY solution INSTILL 1 SPRAY INTO EACH NOSTRIL TWICE DAILY 3 Active torsemide (DEMADEX) 20 MG tablet Take 1 tablet (20 mg total) by mouth 1 (one) time each day 90 tablet 3 4 Active ergocalciferol 1.25 MG (16621 UT) capsule TAKE 1 CAPSULE BY MOUTH ONE TIME PER WEEK 13 capsule 3 4 Active Active Problems Problem Noted Date Diagnosed Date Obese class I 07/26/2022 Acute nontraumatic kidney injury 12/28/2021 Acute systolic heart failure 12/28/2021 Carotid artery stenosis 12/28/2021 Chronic kidney disease stage 2 12/28/2021 Hypertensive disorder 12/28/2021 Mitral insufficiency and aortic stenosis 022 Old myocardial infarction 12/28/2021 Peptic ulcer 12/28/2021 Right bundle-branch block 12/28/2021 Hiatal hernia 02/26/2009 Esophagitis, not otherwise specified 01/01/2009 Coronary arteriosclerosis 09/07/2005 Overview (07/25/2023): Followed by dr gunter He advises detention plavix unless bleeding Hypercholesterolemia 09/07/2005 Lateral epicondylitis 09/07/2005 Overview (12/28/2021): IMO update Immunizations Name Administration Dates Next Due Influenza, Unspecified 08/11/2019 Pneumococcal Polysaccharide 08/11/2019, 9 Td 09/08/2005 Family History Medical History Relation Comments Cancer Father ear Hypertension Sibling 1 younger brother Heart disease Sibling 2 older brother-do uble bypass\ younger brother two stents Relation Status Comments Father Mother Sibling 1 Sibling 2 Social History Tobacco Use Types Packs/Day Years Used Date Smoking Tobacco: Never Smokeless Tobacco: Never Tobacco Cessation:Counseling Given: No Alcohol Use Standard Drinks/Week Comments No 0 (1 standard drink = 0.6 oz pur e alcohol) Sex and Gender Information Value Date Recorded Sex Assigned at Not on file Legal Sex Male 4:56 PM EST Gender Identity Not on file Sexual Orientation Not on file Last Filed Vital Signs Vital Sign Reading Time Taken Comments Blood Pressure 95/52 07/23/2024 1:46 PM EDT Pulse 66 07/23/2024 1:46 PM EDT Temperature - - Respiratory Rate - - Oxygen Saturation 93% 12/28/2021 5:06 PM EDT Inhaled Oxygen Concentration - - Weight 85.3 kg (188 lb) 07/23/2024 1:46 PM EDT Height 177.8 cm (5' 10 ) 11/19/2019 12:00 PM EST Body Mass Index 26.98 11/19/2019 12:00 PM EST Plan of Treatment Upcoming Encounters Date Type Department Care Team (Late st Contact Info) Description 07/22/2025 1:30 PM EDT Office Visit [facility] [address] [address] Cristofer Swain MD [facility] [phone] Health Maintenance Due Date Last Done Comments Colorectal Cancer Screening: Annual FOBT 2009 Colorectal Cancer Screening: Colonoscopy 2009 Colorectal Cancer Screening: Sigmoidoscopy 2009 Pneumococcal Vaccine: Pediatrics (0 to 5 Years) and At-Risk Patients (6 to 64 Years) (3 of 3 - PCV) 08/11/2020 08/11/2019, 02/28/2009 Influenza Vaccine (#1) 2024 08/11/2019 Hepatitis B Vaccine Aged Out No longe r eligible based on patient's age to complete this topic Insurance [facility] MEDICAID [facility] MEDICAID Care Teams Debrander Relationship Specialty Start Date End Date Dimitris Carter NP [address] [place] [address] PCP - General Nurse Practitioner 07/25/23
== END 2024-11-21 11:10 | disposition home or self-care (01) ==
PROVIDERS: PCP Nurse Practitioner Family; Visit Provider Nurse Practitioner Family
DX: I10 Essential (primary) hypertension (principal); Z12.5 Encounter for screening for malignant neoplasm of prostate

== ENCOUNTER → 2024-11-21 10:03 | Outpatient (BNVA) | payer OTHER, SELFPAY | PROVIDERS: PCP Nurse Practitioner Family; Visit Provider Nurse Practitioner Family | DX: I10 Essential (primary) hypertension (principal) | CPT/HCPCS: 96127; 99212 ==

== ENCOUNTER 2025-04-25 10:06 | Outpatient (REF) | payer OTHER, SELFPAY ==
--- OUTSIDE RECORDS SUMMARY | 2025-04-25 10:49 | XMS_ITS | Clinical Summary ---
Author Organization [facility] Address [address] [address] Phone Care Team Providers Care Cut Out And Marking Machine Operator Name Role Phone BradcynthiaDimitris ASSOCIATE PROFESSOR OF ANTHROPOLOGY Primary Care Provider [phone] Allergies Active Allergy Reactions Criticality Noted Date [...] INTO EACH NOSTRIL TWICE DAILY 3 Active ergocalciferol 1.25 MG (12614 UT) capsule TAKE 1 CAPSULE BY MOUTH ONE TIME PER WEEK 13 capsule 3 4 Active torsemide (DEMADEX) 20 MG tablet TAKE ONE TABLET BY MOUTH EVERY DAY 90 tablet 3 5 Active Active Problems Problem Noted Date Diagnosed [...] (07/25/2023): Followed by dr gunter He advises intermediate plavix unless bleeding Hypercholesterolemia 09/07/2005 Lateral epicondylitis 09/07/2005 Overview (12/28/2021): IMO update Encounters Date Type Department Care Team Description 01/30/2025 Refill [facility] [address] [place] [address] Cristofer Swain MD from Last 3 Months Immunizations Immunization Administration Dates Next Due Influenza, Unspecified 08/11/2019 [...] Office Visit [facility] [address] [address] Cristofer Swain MD [address] [address] Health Maintenance Due Date Last Done Comments Colorectal Cancer Screening: Annual FOBT 2009 Colorectal Cancer Screening: Colonoscopy 2009 Colorectal Cancer Screening: Sigmoidoscopy 2009 Pneumococcal Vaccine: 50+ Years (3 of 3 - PCV) 08/11/2020 08/11/2019, 02/28/2009 Influenza Vaccine (#1) 2025 4, 07/06/2023, 07/09/2022, Additional history exists Pneumococcal Vaccine: Peds (0 to 5 Years) and At-Risk Patients (6 to 49 Years) Discontinued 08/11/2019, 02/28/2009 Hepatitis B Vaccine Aged Out No longe r eligible based on patient's age to complete this topic Insurance [facility] Medicaid [facility] Medicaid Care Teams Cut Out And Marking Machine Operator Relationship Specialty Start Date End Date Dimitris Carter NP [address] [place] [address] PCP - General Nurse Practitioner 07/25/23
--- OUTSIDE RECORDS SUMMARY | 2025-04-25 10:49 | XMS_ITS | Clinical Summary ---
Author Organization [facility] Address [address] [place] [address] Phone Care Team Providers Care Ballet Master/Mistress Name Role Phone Jagruti Carter NP Primary Care Provider Allergies No known active allergies Medications BUDESONIDE ORAL 1 Grant by Nasal route 2 times daily. Active [...] by mouth 1 (one) time each day. 03/20/2024 Active oxymetazoline (No Drip) 0.05 % nasal spray 2 Sprays by Nasal route 2 times daily. Active dapagliflozin propanediol (Farxiga) 10 mg tablet Take 1 tablet (10 mg total) by mouth 1 (one) time each day. 90 tablet 1 10/24/2024 Active Entresto 49-51 mg per tablet TAKE ONE TABLET BY MOUTH TWICE A DAY 180 tablet 3 03/01/2025 Active Active Problems Problem Noted Date Diagnosed Date Atherosclerosis of campo co ronary artery of campo heart without angina pectoris 06/20/2024 VT (ventricular tachycardia) (CMS/HCC V24, CMS/H CC V28) 06/20/2024 Carotid artery disease (CMS/HCC V24) 02/09/2023 Peripheral artery disease (CMS/HCC V24) 02/10/20 23 Hx of CABG 02/09/2023 Hypertension 02/09/2023 Nonrheumatic aortic valve stenosis 02/09/2023 Nonrheumatic mitral valve regurgitation 02/10/20 23 Aortic ejection murmur 12/14/2021 Dyspnea on exertion 12/14/2021 Ischemic cardiomyopathy 12/14/2021 Coronary atherosclerosis of campo coronary vess el 09/07/2005 Overview (10/19/2024): Followed by dr gunter He advises jail plavix unless bleeding Lateral epicondylitis 09/07/2005 Overview (10/19/2024): IMO update Mixed hyperlipidemia 09/07/2005 Encounters Date Type Department Care Team Description 04/16/2025 1:30 PM EDT Ancillary Procedure [facility] Cardiology [facility] [address] [place] [address] Encounter for adjustment or management of cardiac device 03/19/2025 3:25 AM EDT Ancillary Procedure [facility] - [address] [place] [address] 03/13/2025 Telephone [facility] Cardiology [facility] [address] [place] [id number] Jagruti Gunter MD from Last 3 Months Immunizations Name Administration [...] HISTORICAL CHOLECYSTECTOMY; COMMENT: 2003 ESOPHAGOGASTRODUODENOSCOPY 01/02/08 PROCEDURE: CT EGD TRANSORAL BIOPSY SINGLE/MULTIPLE; COMMENT: erosive esophagitis, r/o christina's. Erosive gastritis-bx:mild chronic inflammation, gastric ulcer Medical History Medical History Date Comments Mixed hyperlipidemia 09/07/2005 DX:Mixed hy perlipidemia Coronary atherosclerosis of unspecified type of vessel, campo or graft 09/07/2005 DX:Coronary atherosclerosis of unspecified type of vessel, campo or graft Lateral epicondylitis of elbow 09/07/2005 D X:Lateral epicondylitis of elbow Coronary atherosclerosis of unspecified type of vessel, campo or graft 09/07/2005 DX:Coronary atherosclerosis of unspecified type of vessel, campo or graft Family History Medical History Relation [...] Care Team (Late st Contact Info) Description 05/02/2025 11:00 AM EDT Ancillary Procedure [facility] Cardiology [facility] - [address] [place] [address] 05/10/2025 8:20 AM EDT Office Visit [facility] Cardiology [facility] [address] [place] [address] Jagruti Gunter MD [address] [place] [address] [address] [place] [address] 04/16/2026 10:00 AM EDT Ancillary Procedure [facility] - [address] [place] [phone] Health Maintenance Due Date Last Done Comments Zoster Vaccines (1 of 2) 2010 Pneumococcal Vaccine: 50+ Years (2 of 2 - PCV) 08/11/2020 08/11/2019, 02/28/2009 Cholesterol Screening (Lipid Panel) 09/04/2022 07/31/2007 Colorectal Cancer Screening: Colonoscopy 09/04/2022 HIV Screening 09/04/2022 Medicare Annual Wellness Visit 09/04/2022 Social Influencers of Health Screening 09/04/2022 Depression Screening 09/26/2024 Hypertension/CHF/CAD Annual BMP Blood Test 03/14/2025 03/14/2024, 03/14/2024 Influenza Vaccine (#1) 2025 , 07/06/2023, 07/09/2022, Additional history exists DTaP,Tdap,and Td Vaccines (3 - Td or Tdap) 08/02/2033 08/02/2023, 09/08/2005 Hepatitis C Screening Completed 01/02/2004 RSV Immunization Adult Patients Completed 09/03/2023 COVID-19 Vaccine Completed 08/05/2024, 08/2023, 07/06/2022, Additional history exists HIB Vaccines Aged Out [...] age to complete this topic Meningococcal B Vaccine Aged Out No l onger eligible based on patient's age to complete this topic RSV Immunization Patients Under 20 months Aged Out No longer eligible based on patient's age to complete this topic Varicella Vaccines Aged Out No longer eligible based on patient's age to complete this topic Medical Devices Implanted Type Area Barrel Loader And Cleaner Device Identifier Shelf Expiration Date Model / Serial / Lot Bsci-[id number] Implanted:04/26 (Quantity not on file) Cardiac ICD [employer] CARD RHYTHM MGMT [id number] / [id number] / Procedures Procedure Name Priority Date/Time Associated Diagnosis Comments CARDIAC DEVICE CHECK- IN CLINIC- MURJ Routine 04/17/2025 6:47 AM EDT Encounter for adjustment or management of cardiac device CARDIAC DEVICE CHECK- REMOTE- MURJ Routine 03/19/2025 3:20 AM EDT ANNUAL BMP BLOOD TEST Routine 03/14/2024 LIPID PANEL Routine 07/31/2007 HEPATITIS C SCREENING Routine 01/02/2004 from Last 3 Months or Most Recently Relevant to Health Maintenance Results * CARDIAC DEVICE CHECK- IN CLINIC- MURJ (04/17/2025 6:47 AM EDT) Date Time Interrogation Session [id number] CV DEVICE CHECK Implantable Pulse Generator Barrel Loader And Cleaner BSX CV DEVICE CHECK Implantable Pulse Generator Type ICD CV DEVICE CHECK Implantable Pulse Generator Model D233 CV DEVICE CHECK Implantable Pulse Generator Serial Number [id number] CV DEVICE CHECK Implantable Pulse Generator Implant Date 20230512 CV DEVICE CHECK Battery Remaining Longevity 132.0 CV DEVICE CHECK Battery Status Unknown CV DE VICE CHECK Lead Channel Sensing Intrinsic Amplitude 4.700 CV DEVICE CHECK Lead Channel Setting Sensing Sensitivity 0.25 CV DEVICE CHECK Lead Channel Impedance Value 527 CV DEVICE CHECK Lead Channel Pacing Threshold Amplitude 1.200 CV DEVICE CHECK Lead Channel Pacing Threshold Pulse Width 0.4 CV DEVICE CHECK Lead Channel RA Pacing Threshold Date 2025-04-16 CV DEVICE CHECK Lead Channel Setting Pacing Amplitude 3.500 CV DEVICE CHECK Lead Channel Setting Pacing Pulse Width 0.4 CV DEVICE CHECK Lead Channel Sensing Intrinsic Amplitude 20.400 CV DEVICE CHECK Lead Channel Setting Sensing Sensitivity 0.60 CV DEVICE CHECK Lead Channel Impedance Value 451 CV DEVICE CHECK Lead Channel Pacing Threshold Amplitude 0.700 CV DEVICE CHECK Lead Channel Pacing Threshold Pulse Width 0.4 CV DEVICE CHECK Lead Channel RV Pacing Threshold Date 2025-04-16 CV DEVICE CHECK Lead Channel Setting Pacing Amplitude 3.500 CV DEVICE CHECK Lead Channel Setting Pacing [...] 0 CV DEVICE CHECK Shock Measured Impedance 71 CV DEVICE CHECK Zone Setting Type Category VF CV DEVICE CHECK Rate 205 CV DEVICE CHECK Therapies 41J, 41J CV DEVICE CHECK Zone Setting Status On CV DEVICE CHECK Zone ID 1 CV DEVICE CHECK Zone Setting Type Category VT CV DEVICE CHECK Rate 170 CV DEVICE CHECK Therapies 41J, 41J CV DEVICE CHECK Zone Setting Status On CV DEVICE CHECK Zone ID 2 CV DEVICE CHECK Zone Setting Type Category VT1 CV DEVICE CHECK Rate 150 CV DEVICE CHECK Therapies NaNJ, NaNJ CV DEVICE CHECK Zone Setting Status Off CV DEVICE CHECK Zone ID 3 CV DEVICE CHECK Date of Service 2025-06-24 CV DEVICE CHECK Anatomical Region Laterality Modality Device Interroga tion 04/16/2025 Impressions 04/24/2025 4:15 PM EDT Normal In-Office: No Events * Normal Device Function * Alerts or events: None * Battery: Battery is at 100.0%, >132 months * Sensing, impedance and thresholds reviewed and tested * Presenting Rhythm: -VS 66 bpm * Heart Rate Histograms reviewed * Pacing and Detection Parameters were evaluated Heart Failure Diagnostic: Stable * Heart failure diagnostics assessed through the device * Status: Stable * No overt HF present Narrative Procedure Note Blake Hinds MD - 04/24/2025 IMPRESSION: Normal In-Office: No Events * Normal Device Function * Alerts or events: None * Battery: Battery is at 100.0%, >132 months * Sensing, impedance and thresholds reviewed and tested * Presenting Rhythm: -VS 66 bpm * Heart Rate Histograms reviewed * Pacing and Detection Parameters were evaluated Heart Failure Diagnostic: Stable * Heart failure diagnostics assessed through the device * Status: Stable * No overt HF present us Order Referral Cardiovascular CV IMPLANTABLE CAR DIAC DEVICE PROCEDURES Final Result * Cardiac device check - Remote- MURJ (03/19/2025 3:20 AM EDT) Date Time Interrogation Session [id number] CV DEVICE CHECK Type Interrogation Session Remote Scheduled CV DEVICE CHECK Implantable Pulse Generator Barrel Loader And Cleaner BSX CV DEVICE CHECK Implantable Pulse Generator Type ICD CV DEVICE CHECK Implantable Pulse Generator Model D233 CV DEVICE CHECK Implantable Pulse Generator Serial Number [id number] CV DEVICE CHECK Implantable Pulse Generator Implant Date 20230512 CV DEVICE CHECK Battery Remaining Percentage 100.00 CV DEVICE CHECK Battery Remaining Longevity 150.0 CV DEVICE CHECK Battery Status Beginning of Service CV DEVICE CHECK Capacitor Charge Time 10.500 CV DEVICE CHECK Peter Statistic RA Percent Paced 19.00 CV DEVICE CHECK Peter Statistic RV Percent Paced 2.00 CV DEVICE CHECK Atrial Tachy Statistic AT/AF Tavernier Percent 0.00 CV DEVICE CHECK Lead Channel Sensing Intrinsic Amplitude 3.900 CV DEVICE CHECK Lead Channel Setting Sensing Sensitivity 0.25 CV DEVICE CHECK Lead Channel Impedance Value 511 CV DEVICE CHECK Lead Channel Pacing Threshold Amplitude 0.800 CV DEVICE CHECK Lead Channel Pacing Threshold Pulse Width 0.4 CV DEVICE CHECK Lead Channel RA Pacing Threshold Date 2025-03-12 CV DEVICE CHECK Lead Channel Setting Pacing Amplitude 2.000 CV DEVICE CHECK Lead Channel Setting Pacing Pulse Width 0.4 CV DEVICE CHECK Lead Channel Sensing Intrinsic Amplitude 18.700 CV DEVICE CHECK Lead Channel Setting Sensing Sensitivity 0.60 CV DEVICE CHECK Lead Channel Impedance Value 417 CV DEVICE CHECK Lead Channel Pacing Threshold Amplitude 0.800 CV DEVICE CHECK Lead Channel Pacing Threshold Pulse Width 0.4 CV DEVICE CHECK Lead Channel RV Pacing Threshold Date 2025-03-12 CV DEVICE CHECK Lead Channel Setting Pacing [...] 0 CV DEVICE CHECK Shock Measured Impedance 69 CV DEVICE CHECK Zone Setting Type Category [...] 3 CV DEVICE CHECK Date of Service 2025-04-02 CV DEVICE CHECK Anatomical Region Laterality Modality Device Interroga tion 03/13/2025 1:11 AM EDT Impressions 03/18/2025 10:50 AM EDT Normal Remote: With Events * Normal Device Function * Events or Alerts: 1 * 11 beat VT * Battery: Battery is at 100%, 12.50 yrs * Sensing, impedance and thresholds reviewed * Programmed parameters reviewed * Presenting rhythm reviewed * Heart Rate Histograms reviewed HeartLogic Index: Stable * HeartLogic diagnostics assessed through the device * Current HeartLogic HF Index: __0_ * No overt HF present Narrative Procedure Note Blake Hinds MD - 03/19/2025 IMPRESSION: Normal Remote: With Events * Normal Device Function * Events or Alerts: 1 * 11 beat VT * Battery: Battery is at 100%, 12.50 yrs * Sensing, impedance and thresholds reviewed * Programmed parameters reviewed * Presenting rhythm reviewed * Heart Rate Histograms reviewed HeartLogic Index: Stable * HeartLogic diagnostics assessed through the device * Current HeartLogic HF Index: __0_ * No overt HF present Result [facility] Blake Hinds MD CV IMPLANTABLE CARDIAC DEV ICE PROCEDURES Final Result * Annual BMP Blood Test (03/14/2024) Pathologist [facility] Annual BMP Blood Test abstracted Result [facility] Historical Provider HEALTH MAINTENANCE Final Result * Lipid panel (07/31/2007) [facility] LDL/HDL Ratio 3 0 - 4 Triglycerides 125 0 - 150 mg/dL Cholesterol 162 0 - 200 mg/dL HDL 53 >=40 mg/dL LDL Cholesterol 84 0 - 100 mg/dL Blood Venous blood specimen / Unknown Result [facility] Historical Provider LAB BLOOD ORDERABLES Joy l Result * Hepatitis C Screening (01/02/2004) Pathologist [facility] hospital Hepatitis C Screening abstracted Result [facility] Historical Provider HEALTH MAINTENANCE Final Result from Last 3 Months or Most Recently Relevant to Health Maintenance Insurance [employer] Care Teams Ballet Master/Mistress Relationship Specialty Start Date End Date Jagruti Carter NP [address], [place] [facility] - General 11/26/21
[2025-04-25 13:01] LABS: Appearance Urine Clear; Glucose Urine UA 500 mg/dL (Negative); PH 5.5 (5.0-9.0); Specific Gravity - Urine >= 1.030 (1.005-1.025)
[2025-04-25 13:12] LABS: MANUAL DIFF FLAG NO
[2025-04-25 13:25] LABS: Hematocrit 46.8 % (42.0-52.0); Hemoglobin 15.6 g/dl (14.0-18.0); Imm Gran Abs Auto 0.02 X10*3/uL (0.00-0.03); Imm Gran Pct Auto 0.3 % (0.0-0.4); Lymphocytes Absolute Auto 1.3 X10*3/uL (1.2-4.9); Mean Corpuscular HGB Conc 33.3 g/dl (31.0-36.0); Mean Corpuscular Hemoglobin 31.3 pg (27.0-33.0); Mean Corpuscular Volume 94.0 fL (80.0-98.0); NRBC Abs Auto 0.000 X10*3/uL (0.0-0.012); NRBC Pct Auto 0.0 /100WBC (0.0-0.2); Platelet Count 156 X10*3/uL (160-400); Red Blood Count 4.98 X10*6/uL (4.60-5.80); White Blood Count 6.4 X10*3/uL (4.8-10.8)
[2025-04-25 13:56] LABS: Alanine Aminotransferase 28 U/L (0-40); Albumin Level 4.4 g/dL (3.5-5.0); Alkaline Phosphatase 69 U/L (39-117); Anion Gap 13 (12-20); Aspartate Amino Transferase 30 U/L (5-37); Blood Urea Nitrogen 24 mg/dL (9-16); Calcium 9.4 mg/dL (8.4-10.2); Carbon Dioxide 24 mmol/L (22-29); Chloride 108 mmol/L (96-108); Cholesterol 80 mg/dL (<200); Estimated Glomerular Filt Rate 54; HDL Cholesterol 43 mg/dL (>40); Potassium 4.2 mmol/L (3.3-5.1); Sodium 141 mmol/L (135-145); Total Protein 7.2 g/dL (6.5-8.0); Triglycerides 56 mg/dL (<150)
== END 2025-04-25 10:07 | disposition home or self-care (01) ==
LOC: HO.HMGCLDS 10:06
PROVIDERS: PCP Nurse Practitioner Family; Visit Provider Nurse Practitioner Family
DX: Z12.5 Encounter for screening for malignant neoplasm of prostate (principal); I10 Essential (primary) hypertension; D69.6 Thrombocytopenia, unspecified
CPT/HCPCS: 36415; 80053; 80061; 81003; 84153; 84443; 85025

== ENCOUNTER 2025-05-28 09:16 | Outpatient (AMB) | payer OTHER, SELFPAY ==
--- NOTE | 2025-05-28 09:20 | A.OFFVIS_ITS ---
Vital Signs 05/28/25 09:26 Height 5 ft 7 in Weight 197 lb 8.547 oz BMI 30.9 BP 99/60 Blood Pressure Location Lt brachial Position Sitting Intake Visit Reasons: Erosive Esophagitis-returning pt , was Tamara Kauffman Intake Note: Patient in office today for follow up of erosive esophagitis. CC: Patient reports doin well after changing his diet. Gis Database Administrator Required: No Accompanied by: Self / Same As Patient Allergies No Known Allergies (No Known Allergies*) Allergy (Verified 05/28/25 09:28) HPI HPI Erosive Esophagitis-returning pt , was Tamara GómezMalcolm: Details: 64-year-old male here for follow-up on Barretts esophagus/erosive esophagitis. He followed in the past by Barbara Hicks and this is my 1st contact with the patient. The primary care provider is Dimitris Carter. PMX ? BILLY-on CPAP Ischemic cardiomyopathy /mitral regurg/history of LA Coronary artery disease Hypertension High cholesterol Paroxysmal atrial fibrillation with cardiac defibrillator Hard of hearing Transaminitis Barretts esophagus PID Chronic kidney disease * SURGICAL HISTORY CABG x4 Cardiac catheterization Cardiac stent Cholecystectomy * ALLERGIES: NKDA * [facility] LABS: Laboratory Tests 06/14/23 04/25/25 08:53 10:47 WBC 6.4 Hgb 15.6 Hct 46.8 Plt Count 156 L Estimated GFR 54 Total Bilirubin 0.9 AST 30 ALT 28 Alkaline Phosphatase 69 TSH 1.48 Hepatitis A IgM Ab Nonreactive Hep Bs Antigen Negative Hep Bs Antibody NONREACTIVE Hep B Core Total Ab Nonreactive Hepatitis C Ab (EIA) Nonreactive BARBARA HICKS IS LAST NOTE 02/16/2024 Assessment & Plan (1) Pete's esophagus determined by endoscopy: Comment: No dysplasia Code(s): K22.70 - 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 He is made dietary modifications is benefit which he will continue Encouraged to fall with any questions or conc EGD/COLONOSCOPY 12/06/23 Findings: Larynx:normal Esophagus: GE junction at 37 cm, diaphragm hiatus at 41 cm, consistent with 4 cm hiatal hernia, schatzki ring noted as well as tongue of possible barretts and linear erosion with edema and bogginess of the GEJ with some scarring, bx taken from GEj, distal and proximal esophagus Stomach: erosive gastritis in distal stomach and antrum. Biopsies were obtained. Grade 2 flap valve on retroflexed examination of the cardia. Duodenum: Patchy erythema, possible peptic injury, bx taken Findings: Terminal Ileum-not intubated due to looping Cecum:normal Ascending Colon: normal Transverse Colon -normal Descending Colon:normal Sigmoid Colon: normal Rectum: Retroflexion with small to moderate sized internal hemorrhoids, grade I Anorectum - normal Impression and Post Procedure Diagnosis: Endoscopy Findings: hiatal hernia esophagitis, erosive erosive gastritis schatzki ring duodenitis barretts appearing mucosa Colonoscopy Findings: internal hemorrhoids Plan: Await Pathology results Repeat Colonoscopy in 5 years due to prior hx of adenomatous polyps or earlier if clinically indicated High fiber diet leaflet avoid straining at stool, epsom salts and sitz bath, anusol supps or cream GERD precautions, check PPI compliance, if taking change formulation BIOPSY Received: 12/06/23 Diagnosis A. Duodenum, biopsy: Chronic inactive duodenitis. B. Stomach, biopsy: Oxyntic mucosa with mild chronic inactive inflammation; no Helicobacter organisms seen. C. GE junction, biopsy: - Pete esophagus with background moderate chronic active inflammation. - No dysplasia seen. - Squamous epithelium within normal limits. D. Esophagus, distal, biopsy: Squamous epithelium within normal limits; no inflammation seen. E. Esophagus, proximal, biopsy: - Cardiac-type mucosa with moderate chronic inactive inflammation; no intestinal metaplasia seen. - Squamous mucosa within normal limits. Comment: The findings in part E may represent an inlet patch. Parts D and E may also have been switched either prior to or after receipt in the laboratory. TODAY'S VISIT [facility] Medical History (Updated 05/24/25 @ 17:10 by BENIGNO Lawson) Physical exam Screening PSA (prostate specific antigen) Hiatal hernia Encounter for colonoscopy due to history of adenomatous colonic polyps Screening for colon cancer Schatzki's ring Nausea & vomiting Mitral valve regurgitation Lateral epicondylitis Peripheral artery disease (atherosclerosis) Carotid artery disease Ventricular tachycardia Aortic stenosis CKD (chronic kidney disease) Paroxysmal A-fib Ischemic cardiomyopathy GERD (gastroesophageal reflux disease) Atherosclerosis History of LA (myocardial infarction) PUD (peptic ulcer disease) HTN (hypertension) HLD (hyperlipidemia) CAD (coronary artery disease) Surgical History Hx of colonoscopy Hx of esophagogastroduodenoscopy History of cardiac defibrillator placement S/P CABG x 4 History of cardiac catheterization Hx of heart artery stent Hx of cholecystectomy Family History Father No problems noted. Mother Myocardial infarction CVD (cardiovascular disease) Social History Housing: Apartment Patient Tobacco Use Status: Former Tobacco user Cigarette Packs Per Day: 1 Years Smoked: 12 e-Cigarette/Vaping Use: Never Used Second Hand Smoke Exposure: No Current occupational status: unemployed Cognitive needs: No Hearing needs: No Vision needs: No Review of Systems Const Denies fatigue, Denies fever(s), Denies night sweats, Denies poor appetite and Denies weight loss Eyes Details: glasses Reports requires corrective lenses ENT Reports Normal hearing present, Denies dental pain, Denies dysphagia, Denies hearing loss, Denies mouth pain, Denies odynophagia, Denies throat swelling, Denies tongue swelling and Reports other (Dentition adequate) Card Reports no additional complaints Resp Reports no additional complaints GI Details: Denies abdominal pain, Denies melena, Denies bloating, Denies hematochezia, Denies constipation, Denies GI cramping, Denies dysphagia, Denies excessive flatus, Denies early satiety, Reports heartburn, Denies diarrhea, Denies nausea, Denies odynophagia, Denies vomiting and Denies hematemesis Skin/Breast Denies pruritus, Denies lesions, Denies rash and Denies jaundice Neuro Reports Normal hearing present and Denies Abnormal speech present Endo Denies fatigue Aller/Immun Denies throat swelling and Denies tongue swelling Physical Exam Vital Signs: Last Vital Signs BP 99/60 05/28/25 09:26 BMI result Body Mass Index 30.9 Const General: cooperative, no acute distress, well developed and well groomed Nutritional Appearance: well nourished and obese centrally obese Orientation/consciousness: oriented to person, oriented to place and oriented to time Limitations: No language barrier HEENT Head: Yes normocephalic and Yes atraumatic Eyes General: appearance normal, both eyes and all related structures Pupils: Equal, round and reactive pupils present Neck Neck: Yes normal visual inspection and Yes no lymphadenopathy Thyroid: Thyroid normal Resp Effort & Inspection: normal respiratory effort and able to speak in complete sentences Auscultation: clear to auscultation bilaterally Cardio Rate: regular rate Rhythm: regular rhythm Heart sounds: Normal, physiologic split S2 sound present and Abnormal heart opening sounds (high pitched sqeek LSB with each beat) Peripheral pulses: radial pulses present (delicate) and posterior tibial pulses present GI Inspection: No distended, No Abdominal panniculus present and Yes obesity Palpation (GI): Soft to palpation, nontender, no guarding, not rigid and No he patosplenomegaly present Percussion: Yes normal to percussion Auscultation: normal bowel sounds Rectal Exam - Male: Yes deferred Skin General skin exam: no rashes or lesions noted, turgor normal, skin not dry, no jaundice, No spider nevi and no striae Rashes: no rashes Nails: normal Neuro General: oriented to person, oriented to place and oriented to time Cranial nerves: Yes Equal, round and reactive pupils present and Yes Normal hearing present Speech: No Abnormal speech present Extrem General: Yes normal to inspection, No clubbing, No cyanosis and No edema Psych Appearance: grossly normal and well kempt Mental Status: mental status grossly normal Speech and movement: Normal speech and movement present Affect: normal affect Attitude: cooperative Thought process: Normal thought process present and not confabulating Thought content: Normal thought content present Insight: Good insight present (Psych) Judgement: Good judgement present (Psych) Assessment & Plan Assessment & Plan (1) Pete's esophagus determined by endoscopy: Comment: No dysplasia Code(s): K22.70 - Pete's esophagus without dysplasia Category: Medical (2) GERD (gastroesophageal reflux disease): Code(s): K21.9 - Gastro-esophageal reflux disease without esophagitis Category: Medical (3) Erosive esophagitis: Code(s): K22.10 - Ulcer of esophagus without bleeding Category: Medical (4) Chronic constipation: Code(s): K59.09 - Other constipation Category: Medical Plan - The patient is a 64-year-old male presenting with routine follow-up for Pete's Esophagus and GERD management. - Long-standing diagnosis of Pete's esophagus and GERD, currently managed with pantoprazole. - Last endoscopy confirmed Pete's esophagus; next procedure planned for 2025. - Patient reports uncomplicated bowel habits and no recent gastrointestinal symptoms. - Recent blood work indicated thrombocytopenia; etiology remains unclear despite normal liver enzyme and thyroid levels. For now I will leave this to his primary care provider to monitor who he sees in September. They can decide if this merits a referral to Hematology. In the meantime the patient was reassured that he has plenty of platelets to promote clotting on a day-to-day basis, but this could become an issue should he ever face major trauma or a severe viral illness. -he will be due for repeat screening colonoscopy in 2028. Since he is very stable return office visit in 1 year Medications: Refilled pantoprazole 40 mg PO DAILY 90 tabs 3RF 90 days Coding Level of Care Code Est Pt Level 3 (62247) Diagnoses Pete's esophagus determined by endoscopy K22.70 GERD (gastroesophageal reflux disease) K21.9 Erosive esophagitis K22.10 Chronic constipation K59.09
[2025-05-28 09:26] VITALS: BP 99/60; BMI 30.9
--- OUTSIDE RECORDS SUMMARY | 2025-05-28 10:10 | XMS_ITS | Clinical Summary ---
Author Organization [facility] Address [address] [address] Phone Care Team Providers Care Gunite Nozzle Operator Name Role Phone BradcynthiaDimitris BIODIESEL PROCESS CONTROL TECHNICIAN Primary Care Provider [phone] Allergies Active Allergy Reactions Criticality Noted Date [...] TWICE DAILY 3 Active ergocalciferol 1.25 MG (03284 UT) capsule TAKE 1 CAPSULE BY MOUTH [...] (07/25/2023): Followed by dr gunter He advises skilled nursing plavix unless bleeding Hypercholesterolemia 09/07/2005 Lateral epicondylitis 09/07/2005 Overview (12/28/2021): IMO update Immunizations Immunization Administration Dates Next Due Influenza, [...] Office Visit [facility] [address] [address] Cristofer Swain MD [address] [phone] Health Maintenance Due Date Last Done Comments [...] patient's age to complete this topic Insurance [facility] Medicaid [facility] Medicaid Care Teams Gunite Nozzle Operator Relationship Specialty Start Date End Date Dimitris Carter NP [address] [place] [address] PCP - General Nurse Practitioner 07/25/23
--- OUTSIDE RECORDS SUMMARY | 2025-05-28 10:10 | XMS_ITS | Clinical Summary ---
Author Organization [facility] Address [address] [facility], [place] [address] Phone Care Team Providers Care Blow Down Helper Name Role Phone Jagruti Carter NP Primary Care Provider Allergies No known active allergies Medications BUDESONIDE ORAL 1 [place] by Nasal route 2 times daily. Active aspirin 81 mg EC tablet Take 81 mg by mouth daily. Active cholecalciferol (VITAMIN D-3) 50 mcg (2,000 unit) capsule Take by mouth once a week. Active evolocumab (Repatha Syringe) 140 mg/mL syringe Inject into the skin every 14 days. Active oxymetazoline (No Drip) 0.05 % nasal spray 2 Sprays by Nasal route 2 times daily. Active dapagliflozin propanediol (Farxiga) 10 mg tablet Take 1 tablet (10 mg total) by mouth 1 (one) time each day. 90 tablet 1 10/24/19 25 Active Entresto 49-51 mg per tablet TAKE ONE TABLET BY MOUTH TWICE A DAY 180 tablet 3 03/01/20 25 Active metoprolol succinate (TOPROL-XL) 50 mg 24 hr tablet TAKE ONE TABLET BY MOUTH EVERY DAY 90 tablet 3 04/30/20 25 Active spironolactone (ALDACTONE) 25 mg tabletIndications: Nonrheumatic aortic valve stenosis,Ischemic cardiomyopathy Take 1 tablet (25 mg total) by mouth 1 (one) time each day. 90 each 3 05/16/20 25 026 Active metoprolol succinate (TOPROL-XL) 50 mg 24 hr tablet Take 1 tablet (50 mg total) by mouth 1 (one) time each day. 03/20/20 24 025 Discontinued Hospital, Clinic, or Other Facility Administered Medication Ordered Dose Route Frequency Start Date End Date Status perflutren lipid microsphere (DEFINITY) 1.3 mL in sodium chloride 0.9% 8.7 mL injection 10 mL IV Once in imaging 05/02/2025 05/02/2025 End ed Active Problems Problem Noted Date Diagnosed Date Atherosclerosis of yuhaaviatam co ronary artery of yuhaaviatam heart without angina pectoris 06/20/2024 Assessment & Plan (05/16/2025 11:36 AM EDT): Longstanding ischemic heart disease with multiple infarctions and revascularization in the past. No active angina or evidence of coronary insufficiency. The patient has marked left ventricular systolic dysfunction without overt congestive heart failure. Orders: ECG 12 lead VT (ventricular tachycardia) ([facility] V24, [facility]/ [facility] V28) 06/20/2024 Assessment & Plan (05/16/2025 11:36 AM EDT): Nonsustained and without symptoms in the setting of marked left ventricular dysfunction. The patient has an ICD in place. He has an underlying pattern of bifascicular block. We will continue to follow him in our device clinic. Carotid artery disease ([facility] V24) 02/09/2023 Peripheral artery disease ([facility] V24) 02/10/20 23 Hx of CABG 02/09/2023 Hypertension 02/09/2023 Nonrheumatic aortic valve stenosis 02/09/2023 Assessment & Plan (05/16/2025 11:36 AM EDT): The patient has gradually progressive aortic stenosis which appears to be in the moderate range. His examination reveals a mid-to-late peaking systolic murmur which is quite high-pitched but the aortic component of the second heart sound is clearly intact. Jagruti is not experiencing any symptoms to suggest that his aortic disease requires intervention. He specifically is not experiencing loss of stamina or exertional breathlessness or chest discomfort. He will continue to monitor for those symptoms. He will return here in about 6 months for repeat assessment. Orders: spironolactone (ALDACTONE) 25 mg tablet; Take 1 tablet (25 mg total) by mouth 1 (one) time each day. Basic metabolic panel; Future Nonrheumatic mitral valve regurgitation 02/10/20 23 Aortic ejection murmur 12/14/2021 Dyspnea on exertion 12/14/2021 Ischemic cardiomyopathy 12/14/2021 Assessment & Plan (05/16/2025 11:36 AM EDT): The patient has ischemic cardiomyopathy without congestive heart failure. He is on long-acting metoprolol, moderate dose Entresto and Farxiga. These are all well-tolerated. Given his drop in ejection fraction I am adding spironolactone to his regimen. I will make arrangements for a basic metabolic profile a week after initiation of therapy. Orders: spironolactone (ALDACTONE) 25 mg tablet; Take 1 tablet (25 mg total) by mouth 1 (one) time each day. 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 Lateral epicondylitis 09/07/2005 Overview (10/19/2024): IMO update Mixed hyperlipidemia 09/07/2005 Encounters Date Type Department Care Team Description 05/16/2025 10:50 AM EDT Office Visit [facility]iology [facility] [address] [facility] [address] [place] [address] Jagruti Gunter MD Dyspnea on exertion (Primary Dx); Atherosclerosis of yuhaaviatam coronary artery of yuhaaviatam heart without angina pectoris; Nonrheumatic aortic valve stenosis; VT (ventricular tachycardia) (CMS/HCC V24, CMS/HCC V28); Ischemic cardiomyopathy 05/02/2025 11:00 AM EDT Ancillary Procedure [facility] Cardiology [facility] - [address] [place] [address] Ischemic cardiomyopathy 04/16/2025 1:30 PM EDT Ancillary Procedure [facility] - [address] [place] [address] Encounter for adjustment or management of cardiac device 03/19/2025 3:25 AM EDT Ancillary Procedure [facility] Cardiology [facility] - [address] [place] [address] 03/13/2025 Telephone [facility] Cardiology [facility] - [facility] [place] [address] [place] [address] Jagruti Gunter MD from Last 3 Months [...] HISTORICAL CHOLECYSTECTOMY; COMMENT: 2003 ESOPHAGOGASTRODUODENOSCOPY 01/02/08 PROCEDURE: [place] EGD TRANSORAL BIOPSY SINGLE/MULTIPLE; COMMENT: erosive esophagitis, r/o christina's. Erosive gastritis-bx:mild chronic inflammation, gastric ulcer Medical History Medical History Date Comments Mixed hyperlipidemia 09/07/2005 DX:Mixed hy perlipidemia Coronary atherosclerosis of unspecified type of vessel, yuhaaviatam or graft 09/07/2005 DX:Coronary atherosclerosis of unspecified type of vessel, yuhaaviatam or graft Lateral epicondylitis of elbow 09/07/2005 D X:Lateral epicondylitis of elbow Coronary atherosclerosis of unspecified type of vessel, yuhaaviatam or graft 09/07/2005 DX:Coronary atherosclerosis of unspecified type of vessel, yuhaaviatam or graft Family History Medical History Relation [...] Sign Reading Time Taken Comments Blood Pressure 102/60 05/16/2025 10:36 AM EDT Pulse 74 05/16/2025 10:36 AM EDT Temperature - - Respiratory Rate - - Oxygen Saturation 99% 05/16/2025 10:36 AM EDT Inhaled Oxygen Concentration - - Weight 95.7 kg (211 lb) 05/16/2025 10:36 AM EDT Height 180.3 cm (5' 11 ) 05/16/2025 10:36 AM EDT Body Mass Index 29.43 05/16/2025 10:36 AM EDT Plan of Treatment Upcoming Encounters Date Type Department Care Team (Late st Contact Info) Description 04/16/2026 10:00 AM EDT Ancillary Procedure [facility] - [facility] [address] [facility] [address] [place] [phone] Health Maintenance Due Date Last Done Comments [...] this topic Medical Devices Implanted Type Area Documentation Writer Device Identifier Shelf Expiration Date Model / Serial / Lot [id number]-Crm [id number] Implanted:04/26 (Quantity not on file) Cardiac ICD [employer]HY[employer]M MGMT [id number] / [id number] / Procedures Procedure Name Priority Date/Time Associated Diagnosis Comments ECG 12-LEAD Routine 05/16/2025 10:48 AM EDT Dyspnea on exertion Atherosclerosis of yuhaaviatam coronary artery of yuhaaviatam heart without angina pectoris TRANSTHORACIC ECHOCARDIOGRAM (TTE) COMPLETE W/ CONTRAST Routine 05/02/2025 11:58 AM EDT Ischemic cardiomyopathy CARDIAC DEVICE CHECK- IN CLINIC- MURJ Routine 04/17/2025 6:47 AM EDT Encounter for adjustment or management of cardiac device CARDIAC DEVICE CHECK- REMOTE- MURJ Routine 03/19/2025 3:20 AM EDT ANNUAL BMP BLOOD TEST Routine 03/14/2024 LIPID PANEL Routine 07/31/2007 HEPATITIS C SCREENING Routine 01/02/2004 from Last 3 Months or Most Recently Relevant to Health Maintenance Results * ECG 12 lead (05/16/2025 10:48 AM EDT) Ventricular Rate ECG 77 BPM GEMUSE Atrial Rate 77 BPM GEMUSE P-R Interval 160 ms GEMUSE QRS Duration 144 ms GEMUSE Q-T Interval 430 ms GEMUSE QTc 486 ms GEMUSE P Wave [place] 36 degrees GEMUSE R [place] -74 degrees GEMUSE T [place] 107 degrees GEMUSE ECG Interpretation Normal sinus rhythm Right bundle branch block Left anterior fascicular block Inferior infarct , age undetermined Anterolateral infarct , age undetermined Abnormal ECG When compared with ECG of 12/12/2023, PVC's no longer present and atrial pacer activity no longer seen Confirmed by MD CRISTIAN, JAGRUTI ([id number]) on 05/16/2025 11:35:57 AM GEMUSE 05/16/2025 10:4 8 AM EDT 05/16/2025 11:35 AM EDT us Jagruti Gunter MD ECG ORDERABLES Final Result GEMUSE * (ABNORMAL) TRANSTHORACIC ECHOCARDIOGRAM (TTE) COMPLETE W/ CONTRAST (05/02/2025 11:58 AM EDT) Left Atrium Minor [place] 4.8 cm CV PACS Left Atrium Major [place] 4.7 cm CV PACS LA Area Sys (A2C) 19 cm2 CV PACS LA Area Sys (A4C) 16 cm2 CV PACS LA Volume (BP) 53 mL CV PACS RA Area 16.3 cm2 CV PACS RA 2D Volume 40 mL CV PACS AV Mean Gradient 18 mmHg CV PACS Ao VTI 61.5 cm CV PACS AV Peak Pillo 2.8 m/s CV PACS AV Peak Gradient 32 mmHg CV PACS AV Area Continuity Equation 1.2 cm2 CV PACS AV Area Peak Velocity 1.2 cm2 CV PACS Aortic Sinus Valsalva 3.0 cm CV PACS Ascending Aorta 3.3 cm CV PACS IVC Proximal 2.0 cm CV PACS IVSD 1.3(A) 0.6 - 1.0 cm CV PACS LVIDD 5.3 4.2 - 5.8 cm CV PACS LVIDS 4.6(A) 2.5 - 4.0 cm CV PACS LVOT Diameter 2.5 cm CV PACS LVOT Mean Grad 1 mmHg CV PACS LVOT Peak VTI 15.2 cm CV PACS LVOT Mean Pillo 0.5 m/s CV PACS LVOT Peak Pillo 0.7 m/s CV PACS LVOT Peak Gradient 2 mmHg CV PACS LVPWD 1.2(A) 0.6 - 1.0 cm CV PACS MV E' Tissue Velocity Lateral 10 cm/s CV PACS MV E' Tissue Velocity Septal 7 cm/s CV PACS LVOT Area 4.9 cm2 CV PACS LVOT Stroke Volume 75 mL CV PACS MV Deceleration [place] 2.7 m/s2 CV PACS E Wave Deceleration Time 280(A) 119 - 242 ms CV PACS MV PHT 82 ms CV PACS MV Peak A Pillo 1.11 m/s CV PACS MV Peak E Pillo 0.77 m/s CV PACS MV Area PHT 2.7 cm2 CV PACS PV Acceleration Time 109 ms CV PACS PV Acceleration Time 109 ms CV PACS PV Peak Velocity 0.9 m/s CV PACS PV Peak Gradient 3 mmHg CV PACS RV Diastolic Basal Dimension 3.3 2.5 - 4.1 cm CV PACS TAPSE 19 mm CV PACS TR Peak Velocity 2.27 m/s CV PACS TR Peak Gradient 21 mmHg CV PACS E/E' Ratio Septal 11 CV PACS E/E' Ratio Averaged 9 CV PACS LVOT Stroke Index 36 mL/m2 CV PACS Relative Wall Thickness ratio 0.45 CV PACS LVOT:AV VTI Index 0.25 CV PACS FS 13 % CV PACS LV Mass 2D 272 g CV PACS Ascending Aorta Index 1.59 cm/m2 CV PACS LVOT flow 245 mL/s CV PACS RA 2D Volume Index 19 mL/m2 CV PACS ARJUN Index (VTI) 0.59 cm2/m2 CV PACS ARJUN Index (Pk Pillo) 0.58 cm2/m2 CV PACS LVIDD Index 2.56 cm/m2 CV PACS LVIDS Index 2.22 cm/m2 CV PACS AV Velocity Ratio 0.25 CV PACS E/A Ratio 0.7 CV PACS E/E' Ratio Lateral 8 CV PACS LA Volume Index (BP) 26 mL/m2 CV PACS LV Mass Index 2D 131 g/m2 CV PACS BSA 2.1 m2 CV PACS Right Ventricular Peak Systolic Pressure 29 mmHg CV PACS Est. RA Pressure 8 mmHg CV PACS Anatomical Region Laterality Modality Ultrasound Narrative 05/06/2025 2:42 PM EDT Left ventricle cavity size is normal. Left ventricular systolic function is severely decreased with an ejection fraction of 20-25%. LV global hypokinesis is present. Left ventricle mild hypertrophy. Right ventricle cavity is normal. Right ventricular systolic function is low normal. There is moderate stenosis to severe low flow low gradient aortic stenosis. Compared to 2023, the LVEF appears to have decreased and I suspect the aortic stenosis has progressed despite lower gradients seen (likely due to decreased LVEF). Left Ventricle Left ventricle cavity size is normal. There is mild hypertrophy. Systolic function is severely decreased with an ejection fraction of 20-25%. Global LV hypokinesis is present. There is Grade I (mild) diastolic dysfunction. Right Ventricle Right ventricle cavity appears normal. Systolic function is low normal. Normal TAPSE (> 17 mm). A pacer wire is present in the right ventricle. Left Atrium Left atrium cavity size is normal. Right Atrium Right atrium cavity is normal. There is a pacer wire visualized in the right atrium. IVC/SVC RA pressures is estimated to be 8 mmHg (IVC diameter <21 mm and decreases <50% during inspiration). Mitral Valve The leaflets are mildly thickened. There is annular calcification. There is mild regurgitation. There is no significant stenosis noted. Tricuspid Valve Tricuspid valve structure is normal. There is mild regurgitation. There is no evidence of tricuspid valve stenosis. Aortic Valve The leaflets are moderately thickened. There is trace regurgitation. There is moderate stenosis to severe low flow low gradient aortic stenosis. Pulmonic Valve No significant pulmonic valve regurgitation. No significant pulmonary valve stenosis noted. Ascending Aorta The Sinus of Valsalva is (3.0 cm). The ascending aorta is (3.3 cm). Pericardium Pericardium appears normal. There is no pericardial effusion. Study Details Overall the study quality was technically difficult. Definity contrast was given to enhance imaging. us Ike Perez MINING ENGINEERING TECHNOLOGIST CV ECHO PROCEDURES Final Re sult * CARDIAC DEVICE CHECK- IN CLINIC- [facility] (04/17/2025 6:47 AM EDT) Date Time Interrogation Session [id number] CV DEVICE CHECK Implantable Pulse Generator Documentation Writer BSX CV DEVICE CHECK Implantable Pulse Generator Type ICD CV DEVICE CHECK Implantable Pulse Generator Model D233 CV DEVICE CHECK Implantable Pulse Generator Serial Number [id number] CV DEVICE CHECK Implantable Pulse Generator Implant [...] 3:20 AM EDT) Date Time Interrogation Session [id number] CV DEVICE CHECK Type Interrogation Session Remote Scheduled CV DEVICE CHECK Implantable Pulse Generator Documentation Writer BSX CV DEVICE CHECK Implantable Pulse Generator Type ICD CV DEVICE CHECK Implantable Pulse Generator Model D233 CV DEVICE CHECK Implantable Pulse Generator Serial Number [id number] CV DEVICE CHECK Implantable Pulse Generator Implant Date 20230512 CV DEVICE CHECK Battery Remaining Percentage 100.00 CV DEVICE CHECK Battery Remaining Longevity 150.0 CV DEVICE CHECK Battery Status Beginning of Service CV DEVICE CHECK Capacitor Charge Time 10.500 CV DEVICE CHECK Peter Statistic RA Percent Paced 19.00 CV DEVICE CHECK Peter Statistic RV Percent Paced 2.00 CV DEVICE CHECK Atrial Tachy Statistic AT/AF [place] Percent 0.00 CV DEVICE CHECK Lead Channel [...] __0_ * No overt HF present Result [facility] Blake Hinds MD CV IMPLANTABLE CARDIAC DEV ICE PROCEDURES Final Result * Annual BMP Blood Test (03/14/2024) [facility] Annual BMP Blood Test abstracted Result [facility] Wendy [employer] Final Result * Lipid panel (07/31/2007) [facility] LDL/HDL Ratio 3 0 - 4 Triglycerides 125 0 - 150 mg/dL Cholesterol 162 0 - 200 mg/dL HDL 53 >=40 mg/dL LDL Cholesterol 84 0 - 100 mg/dL Blood Venous blood specimen / Unknown Result [facility] Historical Provider LAB BLOOD ORDERABLES Joy l Result * Hepatitis C Screening (01/02/2004) [facility] Hepatitis C Screening abstracted Result [facility] Historical Wendy [employer] Final Result from Last 3 Months or Most Recently Relevant to Health Maintenance Insurance [employer]VANTAGE Care Teams Blow Down Helper Relationship Specialty Start Date End Date Jagruti Carter NP [address] [place], [place] PCP - General 11/26/21
== END 2025-05-28 09:55 | disposition home or self-care (01) ==
PROVIDERS: PCP Nurse Practitioner Family; Visit Provider Nurse Practitioner
DX: K22.70 Barrett's esophagus without dysplasia (principal); K21.9 Gastro-esophageal reflux disease without esophagitis; K59.09 Other constipation
CPT/HCPCS: 99213

== ENCOUNTER → 2025-05-28 09:16 | Outpatient (BNVA) | payer OTHER, SELFPAY | PROVIDERS: PCP Nurse Practitioner Family; Visit Provider Nurse Practitioner | DX: K22.70 Barrett's esophagus without dysplasia (principal) | CPT/HCPCS: 99212 ==

== ENCOUNTER 2025-09-23 09:30 | Outpatient (REF) | payer OTHER, SELFPAY ==
--- OUTSIDE RECORDS SUMMARY | 2025-09-20 | XMS_ITS | Encounter Summary ---
Author Organization [facility] Address [address] [place] [address] Care Team Providers Care Manufactured Buildings Repairer Name Role Phone BradDimitris marie J WORK DISTRIBUTOR Primary Care Provider Encounter Details Date Type Department Care Team (Late st Contact Info) Description 09/20/2025 Ancillary Procedure [facility] - [facility] [address] [facility] [address] [place] [phone] Arrived Social History Tobacco Use Types Packs/Day Years Used Date Smoking Tobacco: Former Cigarettes 0.5 Q uit: 09/26/1981 Smokeless Tobacco: Never Alcohol Use Standard Drinks/Week Comments No 0 (1 standard drink = 0.6 oz pur e alcohol) Sex and Gender Information Value Date Recorded Sex Assigned at Not on file Legal Sex Male 2:37 AM EST Gender Identity Not on file Sexual Orientation Not on file documented as of this encounter Plan of Treatment Upcoming Encounters Date Type Department Care Team (Late st Contact Info) Description 04/16/2026 10:00 AM EDT Ancillary Procedure [facility] - [address] [facility] [address] [place] [phone] documented as of this encounter Procedures Procedure Name Priority Date/Time Associated Diagnosis Comments CARDIAC DEVICE CHECK- REMOTE- MURJ Routine 09/19/2025 5:10 AM EST documented in this encounter Results * Cardiac device check - Remote- MURJ (09/19/2025 5:10 AM EST) Date Time Interrogation Session [id number] CV DEVICE CHECK Type Interrogation Session Remote Scheduled CV DEVICE CHECK Implantable Pulse Generator Materials And Corrosion Engineer BSX CV DEVICE CHECK Implantable Pulse Generator Type ICD CV DEVICE CHECK Implantable Pulse Generator Model D233 CV DEVICE CHECK Implantable Pulse Generator Serial Number [id number] CV DEVICE CHECK Implantable Pulse Generator Implant Date 20230512 CV DEVICE CHECK Battery Remaining Percentage 100.00 CV DEVICE CHECK Battery Remaining Longevity 138.0 CV DEVICE CHECK Battery Status Beginning of Service CV DEVICE CHECK Capacitor Charge Time 10.600 CV DEVICE CHECK Peter Statistic RA Percent Paced 5.00 CV DEVICE CHECK Peter Statistic RV Percent Paced 1.00 CV DEVICE CHECK Atrial Tachy Statistic AT/AF [place] Percent 0.00 CV DEVICE CHECK Lead Channel Sensing Intrinsic Amplitude 5.500 CV DEVICE CHECK Lead Channel Setting Sensing Sensitivity 0.25 CV DEVICE CHECK Lead Channel Impedance Value 527 CV DEVICE CHECK Lead Channel Pacing Threshold Amplitude 0.800 CV DEVICE CHECK Lead Channel Pacing Threshold Pulse Width 0.4 CV DEVICE CHECK Lead Channel RA Pacing Threshold Date 2025-09-10 CV DEVICE CHECK Lead Channel Setting Pacing Amplitude 2.000 CV DEVICE CHECK Lead Channel Setting Pacing Pulse Width 0.4 CV DEVICE CHECK Lead Channel Sensing Intrinsic Amplitude 20.300 CV DEVICE CHECK Lead Channel Setting Sensing Sensitivity 0.60 CV DEVICE CHECK Lead Channel Impedance Value 491 CV DEVICE CHECK Lead Channel Pacing Threshold Amplitude 0.700 CV DEVICE CHECK Lead Channel Pacing Threshold Pulse Width 0.4 CV DEVICE CHECK Lead Channel RV Pacing Threshold Date 2025-09-09 CV DEVICE CHECK Lead Channel Setting Pacing [...] 0 CV DEVICE CHECK Shock Measured Impedance 82 CV DEVICE CHECK Zone Setting Type Category [...] 3 CV DEVICE CHECK Date of Service 2025-10-01 CV DEVICE CHECK Anatomical Region Laterality Modality Device Interroga tion 09/11/2025 1:12 AM EST Impressions 09/18/2025 7:32 PM EST Normal Remote: No Events * Normal Device Function * Alerts or events: None * Battery: Battery is at 100%, 11.50 yrs * Sensing, impedance and thresholds reviewed * Programmed parameters reviewed * Presenting rhythm reviewed * Heart Rate Histograms reviewed * No significant changes noted HeartLogic Index: Stable * HeartLogic diagnostics assessed through the device * Current HeartLogic HF Index: _7__ * No overt HF present Narrative Procedure Note Blake Hinds MD - 09/19/2025 IMPRESSION: Normal Remote: No Events * Normal Device Function * Alerts or events: None * Battery: Battery is at 100%, 11.50 yrs * Sensing, impedance and thresholds reviewed * Programmed parameters reviewed * Presenting rhythm reviewed * Heart Rate Histograms reviewed * No significant changes noted HeartLogic Index: Stable * HeartLogic diagnostics assessed through the device * Current HeartLogic HF Index: _7__ * No overt HF present Blake Hinds MD CV IMPLANTABLE CARDIAC DEV ICE PROCEDURES Final Result documented in this encounter Visit Diagnoses Not on filedocumented in this encounter Care Teams Manufactured Buildings Repairer Relationship Specialty Start Date End Date Dimitris Carter NP [address] [place], [place] PCP - General 11/26/21 documented as of this encounter
--- OUTSIDE RECORDS SUMMARY | 2025-09-23 10:03 | XMS_ITS | Encounter Summary ---
Author Organization [facility] Address [address] [place] [address] Care Team Providers Care Transmission System Operator Name Role Phone Dimitris Carter BOOK REPAIRER Primary Care Provider Encounter Details Date Type Department Care Team (Late Contact Info) Description 07/22/2025 Results Follow-Up [facility] - [facility] [address] [facility] [address] [place] [address] Dimitris Núñez MD [address] [place] [address] [address] [place] [address] Social History Tobacco Use Types Packs/Day Years [...] Description 04/16/2026 10:00 AM EDT Ancillary Procedure [facility] Cardiology [facility] [address] [facility] [address] [place] [phone] documented as of this encounter Visit Diagnoses Not on filedocumented in this encounter Care Teams Transmission System Operator Relationship Specialty Start Date End Date Dimitris Carter NP [address] [place], [place] PCP - General 11/26/21 documented as of this encounter
--- OUTSIDE RECORDS SUMMARY | 2025-09-23 10:03 | XMS_ITS | Clinical Summary ---
Author Organization [facility] [employer] [facility] Address [address] [place], [place] [address] Phone Care Team Providers Care Expander Machine Operator Name Role Phone Jagruti Carter NP Primary Care Provider Allergies No known active allergies Medications BUDESONIDE ORAL 1 [place] by Nasal route 2 times daily. Active [...] by Nasal route 2 times daily. Active Entresto 49-51 mg per tablet TAKE ONE TABLET BY MOUTH TWICE A DAY 180 tablet 3 5 Active metoprolol succinate (TOPROL-XL) 50 mg 24 hr tablet TAKE ONE TABLET BY MOUTH EVERY DAY 90 tablet 3 5 Active spironolactone (ALDACTONE) 25 mg tabletIndications:N onrheumatic aortic valve stenosis,Ischemic cardiomyopathy Take 1 tablet (25 mg total) by mouth 1 (one) time each day. 90 each 3 5 05/16/20 26 Active Farxiga 10 mg tablet TAKE ONE TABLET BY MOUTH EVERY DAY 90 tablet 1 5 Active Active Problems Problem Noted Date Diagnosed Date Atherosclerosis of circle co ronary artery of circle heart without angina pectoris 06/20/2024 Assessment & Plan (05/16/2025 11:36 AM EDT): Longstanding ischemic heart disease with multiple infarctions and revascularization in the past. No active angina or evidence of coronary insufficiency. The patient has marked left ventricular systolic dysfunction without overt congestive heart failure. Orders: ECG 12 lead VT (ventricular tachycardia) 06/20/2024 Assessment & Plan (05/16/2025 11:36 AM EDT): Nonsustained and without symptoms in the setting of marked left ventricular dysfunction. The patient has an ICD in place. He has an underlying pattern of bifascicular block. We will continue to follow him in our device clinic. Carotid artery disease 02/09/2023 Peripheral artery disease [...] Basic metabolic panel; Future Coronary atherosclerosis of circle coronary vess el 09/07/2005 Overview (10/19/2024): Followed by dr gunter He advises senior living plavix unless bleeding Lateral epicondylitis 09/07/2005 Overview (10/19/2024): IMO update Mixed hyperlipidemia 09/07/2005 Encounters Date Type Department Care Team Description 09/20/2025 Ancillary Procedure [facility] [address] [place] [address] Arrived 07/22/2025 Results Follow-Up [facility] [address] [place] [address] Jagruti Gunter MD from Last 3 Months Immunizations Immunization Administration Dates Next Due Influenza Quadravalent, MDCK [...] subun it RSVpreF, 0.5mL, Preservative Free (Arexvy) 50yo and older 09/03/2023 Td Tetanus diptheria (Tdvax) 7yo and older 09/08 Tdap Tetanus diptheria acell ular pertussis (Boostrix; Adacel) 7yo and older 08/02/2023 Surgical History Surgery Date Site/Laterality Comments CHOLECYSTECTOMY PROCEDURE: HISTORICAL CHOLECYSTECTOMY; COMMENT: 2003 ESOPHAGOGASTRODUODENOSCOPY 01/02/08 PROCEDURE: VT EGD TRANSORAL BIOPSY SINGLE/MULTIPLE; COMMENT: erosive esophagitis, r/o christina's. Erosive gastritis-bx:mild chronic inflammation, gastric ulcer Medical History Medical History Date Comments Mixed hyperlipidemia 09/07/2005 DX:Mixed hy perlipidemia Coronary atherosclerosis of unspecified type of vessel, circle or graft 09/07/2005 DX:Coronary atherosclerosis of unspecified type of vessel, circle or graft Lateral epicondylitis of elbow 09/07/2005 D X:Lateral epicondylitis of elbow Coronary atherosclerosis of unspecified type of vessel, circle or graft 09/07/2005 DX:Coronary atherosclerosis of unspecified type of vessel, circle or graft Family History Medical History Relation [...] Description 04/16/2026 10:00 AM EDT Ancillary Procedure [facility] [address] [address] Health Maintenance Due Date Last Done Comments Colorectal Cancer Screening: Colonoscopy 1960 Zoster Vaccines (1 of 2) 2010 Pneumococcal Vaccine: 50+ Years (2 of 2 - PCV) 08/11/2020 08/11/2019, 02/28/2009 Cholesterol Screening (Lipid Panel) 09/04/2022 07/31/2007 HIV Screening 09/04/2022 Medicare Annual Wellness Visit 09/04/2022 Social Influencers of Health Screening 09/04/2022 Depression Screening 09/26/2024 Hypertension/CHF/CAD Annual BMP Blood Test 07/17/2026 07/17/2025, 03/14/2024, 03/14/2024 DTaP,Tdap,and Td Vaccines (3 - Td or Tdap) 08/02/2033 08/02/2023, 09/08/2005 Hepatitis C Screening Completed 01/02/2004 RSV Immunization Adult Patients Completed 09/03/2023 COVID-19 Vaccine Completed 08/11/2025, 06/2024, 07/07/2023, Additional history exists Influenza Vaccine Completed 08/11/2025, , 07/06/2023, Additional history exists HIB Vaccines Aged Out [...] this topic Medical Devices Implanted Type Area Door Assembler Device Identifier Shelf Expiration Date Model / Serial / Lot [id number]-[id number] Implanted:04/26 (Quantity not on file) Cardiac ICD [employer] MGMT [id number] / [id number] / Procedures Procedure Name Priority Date/Time Associated Diagnosis Comments CARDIAC DEVICE CHECK- REMOTE- MURJ Routine 09/19/2025 5:10 AM EST BASIC METABOLIC PANEL Routine 07/17/2025 9:35 AM EDT Nonrheumatic aortic valve stenosis Ischemic cardiomyopathy LIPID PANEL Routine 07/31/2007 HEPATITIS C SCREENING Routine 01/02/2004 from Last 3 Months or Most Recently Relevant to Health Maintenance Results * Cardiac device check - Remote- MURJ (09/19/2025 5:10 AM EST) Date Time Interrogation Session [id number] CV DEVICE CHECK Type Interrogation Session Remote Scheduled CV DEVICE CHECK Implantable Pulse Generator Door Assembler BSX CV DEVICE CHECK Implantable Pulse Generator Type ICD CV DEVICE CHECK Implantable Pulse Generator Model D233 CV DEVICE CHECK Implantable Pulse Generator Serial Number [id number] CV DEVICE CHECK Implantable Pulse Generator Implant Date 20230512 CV DEVICE CHECK Battery Remaining Percentage 100.00 CV DEVICE CHECK Battery Remaining Longevity 138.0 CV DEVICE CHECK Battery Status Beginning of Service CV DEVICE CHECK Capacitor Charge Time 10.600 CV DEVICE CHECK Peter Statistic RA Percent Paced 5.00 CV DEVICE CHECK Peter Statistic RV Percent Paced 1.00 CV DEVICE CHECK Atrial Tachy Statistic AT/AF [place] Percent 0.00 CV DEVICE CHECK Lead Channel [...] CARDIAC DEV ICE PROCEDURES Final Result * (ABNORMAL) Basic metabolic panel (07/17/2025 9:35 AM EDT) Pathologist [facility] Glucose 108(H) 70 - 99 mg/dL [facility] Blood Urea Nitrogen (BUN) 32(H) 8 - 27 mg/dL [facility] Creatinine 1.43(H) 0.76 - 1.27 mg/dL [facility] 1 eGFR 55(L) >59 mL/min/1.7 3 [facility] 1 BUN/Creatinine Ratio 22 10 - 24 [facility] 1 Sodium 139 134 - 144 mmol/L [facility] Potassium 4.5 3.5 - 5.2 mmol/L [facility] 1 Chloride 98 96 - 106 mmol/L [facility] 1 Carbon Dioxide 20 20 - 29 mmol/L [facility] 1 Calcium 10.2 8.6 - 10.2 mg/dL [facility] 1 Blood Venous blood specimen / Unknown 07/17/2025 9:35 AM EDT 07/17/2025 Narrative [facility] 1 - 07/18/2025 1:06 AM EDT Performed at: [facility] [id number] Tube Machine Operator: Anamaria Ortiz MD, Phone: [phone] Jagruti Gunter MD LAB BLOOD ORDERABLES Final Res ult [facility] 1 * Lipid panel (07/31/2007) Pathologist [facility] LDL/HDL Ratio 3 0 - 4 Triglycerides 125 0 - 150 mg/dL Cholesterol 162 0 - 200 mg/dL HDL 53 >=40 mg/dL LDL Cholesterol 84 0 - 100 mg/dL Blood Venous blood specimen / Unknown Mya Nguyen MD LAB BLOOD ORDERABLES Joy l Result * Hepatitis C Screening (01/02/2004) Pathologist [facility] Hepatitis C Screening abstracted us Historical Provider HEALTH MAINTENANCE Final Result from Last 3 Months or Most Recently Relevant to Health Maintenance Insurance [employer] MEDICARE ADVANTAGE Care Teams Expander Machine Operator Relationship Specialty Start Date End Date Jagruti Carter NP [address] [place], [place] PCP - General 11/26/21
[2025-09-23 13:59] LABS: MANUAL DIFF FLAG NO
[2025-09-23 14:09] LABS: Hematocrit 52.6 % (42.0-52.0); Hemoglobin 17.8 g/dl (14.0-18.0); Imm Gran Abs Auto 0.07 X10*3/uL (0.00-0.03); Imm Gran Pct Auto 0.8 % (0.0-0.4); Lymphocytes Absolute Auto 1.6 X10*3/uL (1.2-4.9); Mean Corpuscular HGB Conc 33.8 g/dl (31.0-36.0); Mean Corpuscular Hemoglobin 31.8 pg (27.0-33.0); Mean Corpuscular Volume 93.9 fL (80.0-98.0); NRBC Abs Auto 0.000 X10*3/uL (0.0-0.012); NRBC Pct Auto 0.0 /100WBC (0.0-0.2); Platelet Count 166 X10*3/uL (160-400); Red Blood Count 5.60 X10*6/uL (4.60-5.80); White Blood Count 8.8 X10*3/uL (4.8-10.8)
[2025-09-23 14:41] LABS: Alanine Aminotransferase 39 U/L (0-40); Albumin Level 4.8 g/dL (3.5-5.0); Alkaline Phosphatase 64 U/L (39-117); Anion Gap 13 (12-20); Aspartate Amino Transferase 35 U/L (5-37); Blood Urea Nitrogen 22 mg/dL (9-16); Calcium 9.8 mg/dL (8.4-10.2); Carbon Dioxide 25 mmol/L (22-29); Chloride 103 mmol/L (96-108); Estimated Glomerular Filt Rate 57; Potassium 4.2 mmol/L (3.3-5.1); Sodium 137 mmol/L (135-145); Total Protein 8.1 g/dL (6.5-8.0)
== END 2025-09-23 09:31 ==
LOC: HO.HMGCLDS 09:30
PROVIDERS: PCP Nurse Practitioner Family; Visit Provider Nurse Practitioner Family
DX: D69.6 Thrombocytopenia, unspecified (principal)
CPT/HCPCS: 36415; 80053; 85025